=== PATIENT | male | born 1955 | race Caucasian/White ===

== ENCOUNTER → 2018-03-17 09:23 | Outpatient (REF) | payer BC, SELFPAY ==
[2018-03-17 18:36] LABS: Bilirubin Small (Negative); Blood Negative (Negative); Clarity Cloudy; Glucose Negative (Negative); Ketones Trace mg/dL (Negative); Leukocyte Esterase Negative (Negative); Nitrite Negative (Negative); Specific Gravity >= 1.030 (1.005-1.025); Urobilinogen 0.2 EU/dL (Up TO 0.2); pH 5.5 (5-8)
[2018-03-17 19:01] LABS: Bacteria Few HPF (Negative); Epithelial Cells Rare HPF (Negative); RBC Negative (0-2); WBC 0-2 HPF (0-5)
[2018-03-17 19:02] LABS: Casts Negative LPF (Negative); Crystals Many Calcium Oxalate HPF (Negative); Mucus Moderate (Negative)
[2018-03-17 19:03] LABS: C & S Indicated? No
== END ==
LOC: NCHCN 09:23
PROVIDERS: PCP Physician Assistant; Visit Provider Physician Assistant Medical
DX: R31.21 Asymptomatic microscopic hematuria (principal)
CPT/HCPCS: 81003; 81015

== ENCOUNTER 2018-06-16 11:58 | Outpatient (REF) | payer BC, SELFPAY ==
[2018-06-16 19:15] LABS: ALT 29 U/L (12-78); Anion Gap 10.3 mmol/L (3-11); BUN 17 mg/dL (7-18); CO2 26.7 mmol/L (21.0-32.0); CREATININE 0.97 mg/dL (0.70-1.30); Chloride 101 mmol/L (98-107); Glucose 92 mg/dL (70-100); LDL CHOLESTEROL 93 mg/dL (<100); Potassium 4.4 mmol/L (3.5-5.1); Sodium 138 mmol/L (136-145)
== END 2018-06-16 12:18 ==
LOC: NCHCN 11:58
PROVIDERS: PCP Physician Assistant; Visit Provider Internal Medicine
DX: I10 Essential (primary) hypertension (principal); F17.210 Nicotine dependence, cigarettes, uncomplicated; M48.061 Spinal stenosis, lumbar region without neurogenic claudication
CPT/HCPCS: 80048; 83721; 84460

== ENCOUNTER 2019-07-23 10:26 | Outpatient (REF) | payer BC, SELFPAY ==
[2019-07-23 19:27] LABS: ALT 29 U/L (16-63); AST 28 U/L (15-37); Albumin 4.2 g/dL (3.4-5.0); Alkaline Phosphatase 64 U/L (46-116); Anion Gap 8.6 mmol/L (3-11); BUN 21 mg/dL (7-18); Bilirubin, Total 0.6 mg/dL (0.2-1.0); CO2 27.4 mmol/L (21.0-32.0); CREATININE 0.85 mg/dL (0.70-1.30); Calculated LDL 89 mg/dL; Chloride 106 mmol/L (98-107); Cholesterol 175 mg/dL (<200); Glucose 88 mg/dL (74-106); HDL Cholesterol 72 mg/dL (40-60); Potassium 4.5 mmol/L (3.5-5.1); Sodium 142 mmol/L (136-145); Total Protein 7.1 g/dL (6.4-8.2); Triglyceride 71 mg/dL (<150)
== END 2019-07-23 10:46 ==
LOC: NCHCN 10:26
PROVIDERS: PCP Physician Assistant; Visit Provider Nurse Practitioner Family
DX: I10 Essential (primary) hypertension (principal); Z13.220 Encounter for screening for lipoid disorders
CPT/HCPCS: 80053; 80061

== ENCOUNTER 2020-11-08 11:22 | Outpatient (REF) | payer BC, SELFPAY ==
[2020-11-08 15:08] LABS: Abs Immature Grans 0.03 10^3/uL (0.0-0.06); Absolute Basophil Count 0.05 10^3/uL (0.0-0.2); Absolute Eosinophil Count 0.22 10^3/uL (0.0-0.7); Absolute Lymphocyte Count 1.34 10^3/uL (1.2-3.4); Absolute Monocyte Count 0.55 10^3/uL (0.1-0.8); Basophils % 0.6; Eosinophils % 2.8; HCT 38.3 % (40.0-50.0); HGB 13.2 g/dL (13.5-17.5); Immature Grans % 0.4; Lymphocytes % 17.2; MCH 30.6 pg (27.0-33.0); MCHC 34.5 % (32.0-36.0); MCV 88.9 fL (80-95); MPV 9.6 fL (8.0-11.0); Monocytes % 7.1; Neutrophils % 71.9; Nucleated RBC 0 %; Platelet Count 488 10^3/uL (130-400); RBC 4.31 10^6/uL (4.36-5.78); RDW 12.9 % (11.8-14.1); RDW-SD 41.6 fL; WBC 7.79 10^3/uL (4.4-10.8)
== END 2020-11-08 11:23 | disposition home or self-care (01) ==
LOC: NCHCN 11:22
PROVIDERS: PCP Physician Assistant; Visit Provider Nurse Practitioner Family
DX: D72.829 Elevated white blood cell count, unspecified (principal); M48.061 Spinal stenosis, lumbar region without neurogenic claudication
CPT/HCPCS: 85025; 86140

== ENCOUNTER 2021-01-03 09:56 | Outpatient (CLI) | payer BC, SELFPAY ==
--- NOTE | 2021-01-03 10:02 | PDOC.PAIN ---
Pain Clinic Procedure Note Procedure Note Procedure Note: Lumbar/Sacral Medial Branch Blocks JEVON VARGAS has been referred to the [facility] for lumbar/sacral medial branch blocks. Pre-operative diagnosis: lumbar spondylosis Post-operative diagnosis: same as above COMMENTS: patient has multi-level facet arthropathy as demonstrated on MRI L spine. Patient has both axial back pain and bilateral, alternating leg pain, at present time, axial back pain is more sympatomatic than his leg symptoms. He was seen and evaluated by Ms Ivette Coates APRN in pain clinic and referred for diagnostic bilateral lumbar medial branch nerve block. patient works as a high school social science teacher and his average back pain is 6 out of 10 and interfering with his physical activities. 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 Patient was interviewed and the medical record reviewed. There were no medical, pharmacologic, radiographic or other structural contraindications to attempting fluoroscopically guided local anesthetic lumbar/sacral medial branch blocks. Risks and expected side effects as well as potential benefit of the procedure were reviewed and voiced concerns addressed. The printed consent form was signed and witnessed. Standard time-out procedure was performed. Patient was placed in the prone position on the fluoroscopy table and automated blood pressure cuff and pulse oximeter applied. The skin entry points for approaching the anatomic target points of the segmental medial branches of bilateral L3, L4, L5-DR were identified with anfluoroscopy and marked. Following thorough Chlorhexadine preparation of the skin and draping and 1% lidocaine infiltration of the skin entry points and subcutaneous tissues, a 22 gauge spinal needle was placed under fluoroscopic guidance down on to the target point for each respective segmental medial branch.Position was confirmed in A/P, oblique and lateral views with 0.25ml of omnipaque 240. Coult be this method 0.5ml 0.5% Bupivacaine was injected. Vital signs were stable throughout the procedure and were as recorded in the docflowsheet by the nursing staff. Follow up plans and appointments were discussed and was instructed to keep careful note of how the usual pain was modified by these injections. Specifically was asked to keep a pain diary for the next 24 hours using a numeric pain scale of 0-10 and report these results at the follow-up visit. Post procedure instruction was given as documented in the nursing documentation and having met discharge criteria. Patient was discharged from the [facility]. Based on the medial branches blocked today, if the patient has adequate relief and we are able to proceed to radiofrequency ablation, the treatment should result in the denervation of the bilateral L4/5 and L5/S1 facets. We would expect to denervate a total of 4 facets during the radiofrequency ablation. COMMENTS: pre-procedure VAS score 6/10 and post-procedure VAS score 3/10. Tatiana Santana MD Pain Management CC: Kvng Lara
[2021-01-03 10:05] VITALS: BP 121/74; PULSE 55; RESP 14; TEMP 36.8; O2SAT 99
--- NOTE | 2021-01-03 10:41 | DI.RAD_ITS ---
Exam(s) XR PAIN CLINIC LUMBAR SP 2V EXAM: XR PAIN CLINIC LUMBAR SP 2V CLINICAL HISTORY: Dx: Lumbar Spondylosis TECHNIQUE: 2D and realtime digital imaging was performed. COMPARISON: No exams were available for comparison FINDINGS: C-arm fluoroscopy was utilized by Dr. Santana during bilateral lumbar medial branch block. Hard copy show s needle placement bilaterally at what appear to be the L3-4, L4-5, and L5-S1 levels. IMPRESSION: RADIATION DOSE DELIVERED: mariama Gamino=8.7 mGy
[2021-01-03] MEDS: Bupivacaine 0.5% Pres-Free 10 ML VIAL IJ (10:45)
[2021-01-03] MEDS: Omnipaque 240 MG/ML 50 ML BTL IJ (10:46)
[2021-01-03 10:57] VITALS: BP 147/84; PULSE 65; RESP 17; O2SAT 97
== END 2021-01-03 09:57 | disposition home or self-care (01) ==
LOC: PC 09:56
PROVIDERS: PCP Physician Assistant; Visit Provider Internal Medicine
DX: M47.816 Spondylosis without myelopathy or radiculopathy, lumbar region (principal)
CPT/HCPCS: 64493; 64494; 72100; Q9967

== ENCOUNTER 2021-03-02 10:51 | Outpatient (CLI) | payer BC, MEDICARE, SELFPAY ==
--- NOTE | 2021-03-02 06:00 | DI.RAD_ITS ---
Exam(s) XR PAIN CLINIC LUMBAR SP 2V EXAM: XR PAIN CLINIC LUMBAR SP 2V CLINICAL HISTORY: Dx: Lumbar Spondylosis TECHNIQUE: 2D and realtime digital imaging was performed. Radiologist not present. CONTRAST MATERIAL: None. COMPARISON: No exams were available for comparison FINDINGS: Fluoroscopy was provided for pain management therapy. Please refer to procedure report or details. Cumulative dose: Not given. IMPRESSION: RADIATION DOSE DELIVERED:
[2021-03-02 11:04] VITALS: BP 145/84; PULSE 63; RESP 16; TEMP 36.4; O2SAT 99
[2021-03-02 11:36] VITALS: BP 134/68; PULSE 64; RESP 12; O2SAT 99
[2021-03-02] MEDS: Lidocaine 2% Pres-Free 5 ML VIAL IJ (11:37)
[2021-03-02] MEDS: Omnipaque 240 MG/ML 50 ML BTL IJ (11:38)
--- NOTE | 2021-03-02 13:48 | PDOC.PAIN ---
Pain Clinic Procedure Note Procedure Note Procedure Note: Lumbar/Sacral Medial Branch Blocks JEVON VARGAS has been referred to the [facility] for lumbar/sacral medial branch blocks. COMMENTS: Previous LMBB with excellent pain relief. Pain VAS pre-procedurally 6/10. DX: Lumbosacral spondylosis without myelopathy Patient was interviewed and the medical record reviewed. There were no medical, pharmacologic, radiographic or other structural contraindications to attempting fluoroscopically guided local anesthetic lumbar/sacral medial branch blocks. Risks and expected side effects as well as potential benefit of the procedure were reviewed and voiced concerns addressed. The printed consent form was signed and witnessed. Standard time-out procedure was performed. Patient was placed in the prone position on the fluoroscopy table and automated blood pressure cuff and pulse oximeter applied. The skin entry points for approaching the anatomic target points of the segmental medial branches of bilateral L3-L5DR were identified with anfluoroscopy and marked. Following thorough Chlorhexadine preparation of the skin and draping and 1% lidocaine infiltration of the skin entry points and subcutaneous tissues, a 25 gauge spinal needle was placed under fluoroscopic guidance down on to the target point for each respective segmental medial branch.Position was confirmed in A/P, oblique and lateral views with 0.25ml of omnipaque 240. Coult be this method .5ml 0.5% Bupivacaine was injected or 1% Lidocaine. Vital signs were stable throughout the procedure and were as recorded in the docflowsheet by the nursing staff. Follow up plans and appointments were discussed and was instructed to keep careful note of how the usual pain was modified by these injections. Specifically was asked to keep a pain diary for the next 24 hours using a numeric pain scale of 0-10 and report these results at the follow-up visit. Post procedure instruction was given as documented in the nursing documentation and having met discharge criteria. Patient was discharged from the [facility]. Based on the medial branches blocked today, if the patient has adequate relief and we are able to proceed to radiofrequency ablation, the treatment should result in the denervation of the bilateral L4-L5 and L5-S1 FACET JOINTS. We would expect to denervate a total of 4 facets during the radiofrequency ablation. COMMENTS: Post-procedure pain VAS was 0/10. Anam Back DO, MPH Pain Management CC: Kvng Lara
== END 2021-03-02 10:52 | disposition home or self-care (01) ==
PROVIDERS: PCP Physician Assistant; Visit Provider Preventive Medicine Occupational Medicine
DX: M47.816 Spondylosis without myelopathy or radiculopathy, lumbar region (principal)
CPT/HCPCS: 64493; 64494; 72100; Q9967

== ENCOUNTER 2021-03-21 10:13 | Outpatient (CLI) | payer BC, MEDICARE, SELFPAY ==
--- NOTE | 2021-03-21 06:00 | DI.RAD_ITS ---
Exam(s) XR PAIN CLINIC LUMBAR SP 2V EXAM: XR PAIN CLINIC LUMBAR SP 2V CLINICAL HISTORY: Dx: Lumbar Radiculopathy TECHNIQUE: 2D and realtime digital imaging was performed. Radiologist not present. CONTRAST MATERIAL: None. COMPARISON: No exams were available for comparison FINDINGS: Fluoroscopy was provided for pain management therapy. Please refer to procedure report or details. Total fluoroscopy time 27 Cumulative dose: Ka,r=5.91 mGy IMPRESSION: RADIATION DOSE DELIVERED:
[2021-03-21 10:21] VITALS: BP 127/78; PULSE 56; RESP 18; TEMP 36.5; O2SAT 100
--- NOTE | 2021-03-21 10:43 | PDOC.PAIN ---
Pain Clinic Procedure Note Procedure Note Procedure Note: Lumbar Epidural Steroid Injection Procedure Note Pre-operative diagnosis: lumbar radiculopathy Post-operative diagnosis: same as above COMMENTS: patient has L4-5 spinal stenosis seen on MRI L spine. He has both axial back pain and radiating bilateral leg pain, involving lateral thigh and anterior rico, left more than right leg. Unfortunatley, diagnostic LMBB provided 30% pain relief for his chronic axial back pain. He returns for LESI for symptomatic relief of his back and leg symptoms. patient has previous history of microdiskectomy by Dr Narayan in , he had previous responded well to LESI. JEVON VARGAS has been referred to the [facility] for lumbar epidural steroid injection. The patient was greeted by the nurse who verified patients name and . Patient was then taken to the fluoroscopy suite. The patient was interviewed and the medial record reviewed. There were no medical, pharmacologic, radiographic, or other structural contraindications to attempting fluoroscopically guided lumbar epidural steroid injection. Risks and expected side effects as well as potential benefits of the procedure were reviewed and voiced concerns expressed. The patient consent form was signed and witnessed. Standard patient time-out procedure was performed. The patient was placed in the prone position on the fluoroscopy table and automated blood pressure cuff and pulse oximeter applied. The skin entry point for entering/approaching the epidural space by a L4-5 and marked. Following thorough chlorhexadine preparation of the skin and draping and 1% lidocaine infiltration of the skin entry point and subcutaneous tissues, a 18 gauge Touhy needle was placed under fluoroscopic guidance and with loss of resistance technique into the epidural space. Needle tip placement and depth were aided and confirmed by fluoroscopy. There was no paresthesia or return of blood or CSF through the needle. 1 cc's of Omnipaque 240 was injected with clear epidural spread confirmed with fluoroscopy. 80mg depomedrol was injected. This is followed by 1cc of preservative free 1% lidocine and 0.5cc of preservative free normal saline. There was not any unusual discomfort expressed by JEVON VARGAS. Patient's vital signs were stable throughout the procedure and were as recorded in nursing records. Follow up plans and appointments were discussed with patient. Post procedure instruction was given as documented in nursing records and having met discharge criteria and was discharged from the [facility]. COMMENTS: If this procedure is helpful, it can be completed up to 3 times per 12 months. Pre-procedure VAS score 5/10, post-procedure VAS score reported 1/10. Tatiana Santana MD Pain Management
[2021-03-21] MEDS: Omnipaque 240 MG/ML 50 ML BTL IJ (11:06)
[2021-03-21] MEDS: methylPREDNISolone ACETATE 80 MG/ML VIAL IJ (11:07)
[2021-03-21 11:10] VITALS: BP 123/73; PULSE 58; RESP 13; O2SAT 99
== END 2021-03-21 10:14 | disposition home or self-care (01) ==
LOC: PC 10:13
PROVIDERS: PCP Physician Assistant; Visit Provider Internal Medicine
DX: M54.16 Radiculopathy, lumbar region (principal)
CPT/HCPCS: 62323; 72100; J1040; Q9967

== ENCOUNTER 2021-05-10 12:16 | Outpatient (REF) | payer BC, SELFPAY ==
[2021-05-11 06:53] LABS: ALT 31 U/L (16-63); AST 26 U/L (15-37); Albumin 4.3 g/dL (3.4-5.0); Alkaline Phosphatase 70 U/L (46-116); Anion Gap 6.5 mmol/L (3-11); BUN 13 mg/dL (7-18); Bilirubin, Total 0.5 mg/dL (0.2-1.0); CO2 27.5 mmol/L (21.0-32.0); Chloride 107 mmol/L (98-107); Glucose 108 mg/dL (74-106); Potassium 4.5 mmol/L (3.5-5.1); Sodium 141 mmol/L (136-145); Total Protein 7.2 g/dL (6.4-8.2)
== END 2021-05-10 12:17 | disposition home or self-care (01) ==
LOC: NCHCN 12:16
PROVIDERS: PCP Physician Assistant; Visit Provider Nurse Practitioner Family
DX: I10 Essential (primary) hypertension (principal)
CPT/HCPCS: 80053

== ENCOUNTER 2021-07-06 10:33 | Outpatient (CLI) | payer BC, SELFPAY ==
--- NOTE | 2021-07-06 06:00 | DI.RAD_ITS ---
Exam(s) XR PAIN CLINIC LUMBAR SP 2V EXAM: XR PAIN CLINIC LUMBAR SP 2V CLINICAL HISTORY: DX: lumbar radiculopathy TECHNIQUE: 2D and realtime digital imaging was performed. Radiologist not present. CONTRAST MATERIAL: None. COMPARISON: No exams were available for comparison FINDINGS: Fluoroscopy was provided for pain management therapy. Please refer to procedure report or details. Cumulative dose: Ka,r=4.39 mGy IMPRESSION: RADIATION DOSE DELIVERED:
[2021-07-06 11:17] VITALS: BP 127/68; PULSE 60; RESP 16; TEMP 36.6; O2SAT 99
[2021-07-06] MEDS: methylPREDNISolone ACETATE 80 MG/ML VIAL IJ (11:59)
[2021-07-06] MEDS: Omnipaque 240 MG/ML 50 ML BTL IJ (12:00)
[2021-07-06 12:01] VITALS: BP 130/80; PULSE 63; RESP 16; O2SAT 99
--- NOTE | 2021-07-06 14:55 | PDOC.PAIN ---
Pain Clinic Procedure Note Procedure Note Procedure Note: Lumbar Epidural Steroid Injection Procedure Note COMMENTS: Pre-procedure pain VAS was 5/10. DX: Lumbosacral spondylosis without myelopathy Dean Vallejo has been referred to the [facility] for lumbar epidural steroid injection. The patient was greeted by the nurse who verified patients name and . Patient was then taken to the fluoroscopy suite. The patient was interviewed and the medial record reviewed. There were no medical, pharmacologic, radiographic, or other structural contraindications to attempting fluoroscopically guided lumbar epidural steroid injection. Risks and expected side effects as well as potential benefits of the procedure were reviewed and voiced concerns expressed. The patient consent form was signed and witnessed. Standard patient time-out procedure was performed. The patient was placed in the prone position on the fluoroscopy table and automated blood pressure cuff and pulse oximeter applied. The skin entry point for entering/approaching the epidural space at L4-L5 and marked. Following thorough chlorhexadine preparation of the skin and draping and 1% lidocaine infiltration of the skin entry point and subcutaneous tissues, a 18 gauge Touhy needle was placed under fluoroscopic guidance and with loss of resistance technique into the epidural space. Needle tip placement and depth were aided and confirmed by fluoroscopy. There was no paresthesia or return of blood or CSF through the needle. 1 cc's of Omnipaque 240 was injected with clear epidural spread confirmed with fluoroscopy. 80mg depomedrol was injected. There was not any unusual discomfort expressed by Dean Vallejo. Patient's vital signs were stable throughout the procedure and were as recorded in nursing records. Follow up plans and appointments were discussed with patient. Post procedure instruction was given as documented in nursing records and having met discharge criteria and was discharged from the Pain Management Center. COMMENTS: If this procedure is helpful, it can be completed up to 3 times per 12 months. Anam Back DO, MPH [facility] - Pain Management
== END 2021-07-06 10:34 | disposition home or self-care (01) ==
LOC: PC 10:34
PROVIDERS: PCP Physician Assistant; Visit Provider Preventive Medicine Occupational Medicine
DX: M47.817 Spondylosis without myelopathy or radiculopathy, lumbosacral region (principal)
CPT/HCPCS: 62323; 72100; J1040; Q9967

== ENCOUNTER 2021-11-23 12:04 | Outpatient (CLI) | payer BC, SELFPAY ==
[2021-11-23 12:24] VITALS: BP 124/73; PULSE 59; RESP 20; TEMP 36.6; O2SAT 98
--- NOTE | 2021-11-23 12:46 | DI.RAD_ITS ---
Exam(s) XR PAIN CLINIC LUMBAR SP 2V EXAM: XR PAIN CLINIC LUMBAR SP 2V CLINICAL HISTORY: lumbar radiculopathy TECHNIQUE: 2D and realtime digital imaging was performed. Radiologist not present. CONTRAST MATERIAL: None. COMPARISON: No exams were available for comparison FINDINGS: Fluoroscopy was provided for pain management therapy. Please refer to procedure report or details. Cumulative dose: Ka,r=3.72 mGy IMPRESSION: RADIATION DOSE DELIVERED:
--- NOTE | 2021-11-23 12:48 | PDOC.PAIN ---
Pain Clinic Procedure Note Procedure Note Procedure Note: Lumbar Epidural Steroid Injection Procedure Note COMMENTS: He has done very well with these in the past. He typically gets 4-12 months of relief with this type procedure. His pain VAS prior to the procedure was 7/10. Dx: Lumbosacral radiculitis Dean Vallejo has been referred to the [facility] Management Center for lumbar epidural steroid injection. The patient was greeted by the nurse who verified patients name and . Patient was then taken to the fluoroscopy suite. The patient was interviewed and the medial record reviewed. There were no medical, pharmacologic, radiographic, or other structural contraindications to attempting fluoroscopically guided lumbar epidural steroid injection. Risks and expected side effects as well as potential benefits of the procedure were reviewed and voiced concerns expressed. The patient consent form was signed and witnessed. Standard patient time-out procedure was performed. The patient was placed in the prone position on the fluoroscopy table and automated blood pressure cuff and pulse oximeter applied. The skin entry point for entering/approaching the epidural space at L4-L5 and marked. Following thorough chlorhexadine preparation of the skin and draping and 1% lidocaine infiltration of the skin entry point and subcutaneous tissues, a 18 gauge Touhy needle was placed under fluoroscopic guidance and with loss of resistance technique into the epidural space. Needle tip placement and depth were aided and confirmed by fluoroscopy. There was no paresthesia or return of blood or CSF through the needle. 1 cc's of Omnipaque 240 was injected with clear epidural spread confirmed with fluoroscopy. 80mg depomedrol was injected. There was not any unusual discomfort expressed by Dean Vallejo. Patient's vital signs were stable throughout the procedure and were as recorded in nursing records. Follow up plans and appointments were discussed with patient. Post procedure instruction was given as documented in nursing records and having met discharge criteria and was discharged from the Pain Management Center. COMMENTS: If this procedure is helpful, it can be completed up to 3 times per 12 months. Post-procedure pain level was 0/10. Anam Back DO, MPH [facility]-Pain Management [facility]-Center for Pain Management
[2021-11-23] MEDS: Omnipaque 240 MG/ML 50 ML BTL IJ (12:52)
[2021-11-23] MEDS: methylPREDNISolone ACETATE 80 MG/ML VIAL IJ (12:52)
[2021-11-23 12:55] VITALS: BP 129/74; PULSE 57; RESP 15; O2SAT 98
== END 2021-11-23 12:05 | disposition home or self-care (01) ==
LOC: PC 12:05
PROVIDERS: PCP Physician Assistant; Visit Provider Preventive Medicine Occupational Medicine
DX: M54.17 Radiculopathy, lumbosacral region (principal)
CPT/HCPCS: 62323; 72100; J1040; Q9967

== ENCOUNTER 2022-05-07 21:11 | Outpatient (REF) | payer MEDICARE, SELFPAY ==
[2022-05-07 19:58] LABS: BUN 18 mg/dL (7-18); CREATININE 0.9 mg/dL (0.70-1.30); Calcium 9.4 mg/dL (8.5-10.1); Chloride 102 mmol/L (98-107); Estimated GFR 94.19 (mL/min/1.73m2); Glucose 99 mg/dL (74-106); Potassium 4.6 mmol/L (3.5-5.1); Sodium 139 mmol/L (136-145)
== END 2022-05-07 21:12 | disposition home or self-care (01) ==
LOC: NCHCN 21:11
PROVIDERS: PCP Physician Assistant; Visit Provider Nurse Practitioner Family
DX: I10 Essential (primary) hypertension (principal)
CPT/HCPCS: 80048

== ENCOUNTER 2023-05-06 16:48 | Outpatient (REF) | payer MEDICARE, SELFPAY ==
[2023-05-06 18:56] LABS: Anion Gap 9.7 mmol/L (3-11); BUN 17 mg/dL (7-18); CO2 25.3 mmol/L (21.0-32.0); Calcium 9.3 mg/dL (8.5-10.1); Chloride 102 mmol/L (98-107); Estimated GFR 82.49 (mL/min/1.73m2); Glucose 102 mg/dL (74-106); Potassium 4.5 mmol/L (3.5-5.1); Sodium 137 mmol/L (136-145)
== END 2023-05-06 16:49 | disposition home or self-care (01) ==
LOC: NCHCN 16:48
PROVIDERS: PCP Physician Assistant; Visit Provider Nurse Practitioner Family
DX: I10 Essential (primary) hypertension (principal)
CPT/HCPCS: 80048

== ENCOUNTER 2024-05-06 15:19 | Outpatient (REF) | payer MEDICARE, SELFPAY ==
--- OUTSIDE RECORDS SUMMARY | 2024-05-06 15:21 | XMS_ITS | Encounter Summary ---
Author Organization [facility] [place] [address] Care Team Providers Care Change Control Analyst Name Role Phone Bryce Blankenship MD Primary Care Provider [phone] Reason for Referral * Physical Therapy (Routine) - Specialty Diagnoses / Procedures Referred By Contac t Referred To Contact Physical Therapy Diagnoses Chronic midline low back pain without sciatica Pravin Boo MD [facility] [place] [address] Referral ID Status Reason Start Date Expiration Date V isits Requested Visits Authorized [id number] Evaluate and Treat Non PCP 11/01/2020 04/30/2021 12 12 Reason for Visit * Reason Comments Establish Care severe lunbar stenos is Encounter Details Date Type Department Care Team (Late st Contact Info) Description 11/01/2020 8:40 AM EDT Office Visit [place] [address] Pravin Boo MD [facility] [place] [address] Chronic midline low back pain without sciatica Social History Tobacco Use Types Packs/Day Years Used Date Smoking Tobacco: Every Day Cigarettes Smokeless Tobacco: Never Alcohol Use Standard Drinks/Week Comments Yes 3 (1 standard drink = 0.6 oz pur e alcohol) daily Sex and Gender Information Value Date Recorded Sex Assigned at Not on file Gender Identity Not on file Sexual Orientation Not on file documented as of this encounter Last Filed Vital Signs Vital Sign Reading Time Taken Comments Blood Pressure 138/83 11/01/2020 8:26 AM EDT Pulse 78 11/01/2020 8:26 AM EDT Temperature 36.9 ??C (98.5 ??F) 11/01/2020 8:26 AM ED T Respiratory Rate - - Oxygen Saturation - - Inhaled Oxygen Concentration - - Weight 72.6 kg (160 lb) 11/01/2020 8:26 AM EDT Height 168.9 cm (5' 6.5) 11/01/2020 8:26 AM EDT Body Mass Index 25.44 11/01/2020 8:26 AM EDT documented in this encounter Progress Notes * Pravin Boo MD - 11/01/2020 8:40 AM EDT Images from the original note were not included. Pravin Boo MD MS FAOA Department of Orthopaedics [facility] November 01, 2020 Mr. Vallejo is a 65-year-old gentleman seen today in the spine center in consultation from Dr. Noriega. He is seen and evaluated for exacerbation of chronic thoracic spine pain and low back pain. Hispast history is notable for a lumbar disc excision L5-S1 left side at this institution in 1989 fromwhich he has had occasional residual left leg symptoms. His low back pain has been present for over30 years on and off all of which has been relatively well managed having not missed a day of work over 10 years up until very recently with this episode of low back pain by his report. His thoracic spine pain is also related to an old work injury. Thus his symptoms today of mid thoracic pain and midline low back pain are all exacerbations of longstanding pre-existing symptoms which in general have been well managed. He was seen in the spine center in 2018 for very similar symptoms. He states that 80% of his pain is in his back 20% in his legs. Left and right a equally bothersome and intermittently bothersome occurring primarily in the anterior thigh very rarely to the ankle without numbnessor tingling except for the plantar aspect of his feet. He does have a sense of weakness in his legsbut he relates this to his back pain not due to leg symptoms or intrinsic leg weakness. Most recently he has had constipation and a sense of urinary retention which he relates to increasing back painand new onset medication including oral steroids and oxycodone. He does not have perineal numbness.Treatment thus far has included oral steroids for about 2 weeks, oxycodone, and a muscle relaxant. He is unable to take anti- inflammatories due to hemorrhoid bleeding. He arrives by wheelchair due to his back pain not leg symptoms. He is accompanied by his . Pasthistory in addition to his spine surgery includes ongoing smoking alcohol intake, body mass index of 25.44 with a height of 5 feet 7 inches and weight of 160 pounds. His review of systems is negativefor GI, , constitutional symptoms other than what is noted above. He is actually quite comfortable in the supine position and night pain is not a predominant problem. He has had no recent weight loss or changes in appetite. 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 This is a pleasant but somewhat uncomfortable and somewhat hyperactive gentleman. He changes positions slowly but normally otherwise. In the short distance his gait is normal. With encouragement he can walk on his toes and heels for several steps without evidence of weakness. On inspection from theback he has a level pelvis and a straight spine all of which is normal in appearance and is completely nontender from his cervical spine to his sacrum with a well- healed lumbosacral incision. Sciaticnotches are nontender. His lower extremity motor exam is completely normal. His sensory function is intact to light touch.His reflexes are 2 at the knees 1 at the ankles. A straight leg raise test is negative. Calf musculature is soft and nontender bilaterally. He is not spastic or myelopathic. Plain x-rays of the lumbar spine obtained today are reviewed demonstrating age- appropriate degenerative changes without instability or pathologic findings to my review. Lumbar MRI is reviewed from 10/31/2020 from [facility] demonstrating multilevel degenerative changes particularly at the thoracolumbar junction of the lumbosacral junction with multilevel endplate irregularities. He has moderate stenosis at the L2-L3 level and at the L4-L5 level. He alsohas varying degrees of foraminal stenosis all of which has been outlined in the formal radiology report. Impression: This gentleman presents for exacerbation of longstanding and chronic midthoracic pain and lumbosacral pain. None of his presenting ,symptoms are new. These are all exacerbations of longstanding spinal issues confirmed on repeated questioning with both the patient and his . He has minimal symptoms in his legs and his primary issues appears to be predominantly of mechanical pain asso ciated with his low back. The MRI is very reassuring for the absence of pathologic findings such ascancer given his smoking history, infection, or fracture and is notable primarily for degenerative changes and moderate stenosis which I believe to be relatively asymptomatic given the minimal involvement of his legs. Recommendation: I reviewed all these findings including all the imaging studies with the patient and his . We discussed various options all of which are very limited given the chronicity of his symptoms and the anatomic extent of his pain. I did note the difficulty in determining the precise pain generator of his chronic pain. He is not a candidate for surgery nor is he a candidate for injections given the global nature of his symptoms. After reviewing options, I have advised [id number] Tylenol not to exceed 3 g, and I have provided referral for physical therapy close to home. If hischronic pain is not improved over the next few weeks would recommend referral to the pain clinic here with the spine center. Voice recognition was used for this dictation and I apologize for any mis-wording. [facility] Response Trends Patient-reported scores: myD-H Spine Questionnaire responses 02/28/2018 11/01/2020 Oswestry Disability Index (Range: 0-100) 32 (Moderate disability) 68 (Crippled) PROMIS-10 Physical Health Score 44.9 37.4 PROMIS-10 Mental Health Score 50.8 53.3 Pravin Boo MD MS FAOA Professor of Orthopaedic Surgery Formerly [facility], [facility] and [facility] ([facility]) Department of Orthopaedic Surgery [place] [phone] [email or web address] documented in this encounter Plan of Treatment Scheduled Referrals Name Type Priority Associated Diagnoses Orde r Schedule Referral to Physical Therapy Outpatient Referral Routine Chronic midline low back pain without sciatica Ordered: 11/01/2020 documented as of this encounter Visit Diagnoses Diagnosis Chronic midline low back pain without sciatica documented in this encounter Care Teams Change Control Analyst Relationship Specialty Start Date End Date Bryce Blankenship MD [address] [address] PCP - General 11/24/10 documented as of this encounter
--- OUTSIDE RECORDS SUMMARY | 2024-05-06 15:21 | XMS_ITS | Encounter Summary ---
[place] [address] Care Team Providers Care Child Development Assistant Name Role Phone Bryce Blankenship MD Primary Care Provider Reason for Referral * Diagnostic Test (Routine) - Closed Specialty Diagnoses / Procedures Referred By Contac t Referred To Contact Radiology Diagnoses Acute midline low back pain with bilateral sciatica Status post lumbar surgery Procedures MRI Lumbar Spine wwo Contrast MRI Lumbar Spine wo Contrast (Generic) Deng Desai PA [facility] [place] [address] [place] [address] Referral ID Status Reason Start Date Expiration Date V isits Requested Visits Authorized [id number] Closed Specialty Service Requested 02/28/2018 04/28/2018 1 1 Reason for Visit * Diagnostic Test (Routine) - Closed Specialty Diagnoses / Procedures Referred By Contac t Referred To Contact Radiology Diagnoses Acute midline low back pain with bilateral sciatica Status post lumbar surgery Procedures MRI Lumbar Spine wwo Contrast MRI Lumbar Spine wo Contrast (Generic) Deng Desai PA [facility] [place] [address] [place] [address] Referral ID Status Reason Start Date Expiration Date V isits Requested Visits Authorized [id number] Closed Specialty Service Requested 02/28/2018 04/28/2018 1 1 Encounter Details Date Type Department Care Team (Latest Contact Info) Description 03/03/2018 10:34 AM EDT - 03/03/2018 11:59 PM EDT Hospital Encounter MRI at [facility] [place] [address] Leandro Watts MD [facility] [place] [address] Acute midline low back pain with bilateral sciatica; Left L5-S1 discectomy, 1989, Dr. Posadas. Discharge Disposition: Home Social History Tobacco Use Types Packs/Day Years Used Date Smoking Tobacco: Smoker, Current Status Unknown Smokeless Tobacco: Never Alcohol Use Standard Drinks/Week Comments Yes 3 (1 standard drink = 0.6 oz pur e alcohol) daily Sex and Gender Information Value Date Recorded Sex Assigned at Not on file Gender Identity Not on file Sexual Orientation Not on file documented as of this encounter Medications at Time of Discharge Medication Sig Dispensed Refills Start Date End Date CARTIA XT 240 mg Capsule, Sust. Release 24 hr Take 1 capsule by mouth daily. 02/01/2018 losartan (COZAAR) 100 mg Tablet 1 tablet daily. 02/01/2018 documented as of this encounter Plan of Treatment Not on file documented as of this encounter Procedures Procedure Name Priority Date/Time Associated Diagnosis Comments MRI LUMBAR SPINE WITH/WO CONTRAST Routine 03/03/2018 11:57 AM EDT Acute midline low back pain with bilateral sciatica Left L5-S1 discectomy, 1989, Dr. Posadas. documented in this encounter Results * MRI Lumbar Spine wwo Contrast (03/03/2018 11:57 AM EDT) Anatomical Region Laterality Modality L-spine Magnetic Resonan ce Impressions 03/03/2018 3:42 PM EDT Filum terminalis lipoma. Degenerative changes in the lower thoracic and lumbar spine described in detail at individual levels the body the report. Central stenosis greatest at L2-3 and L4-5. Foraminal narrowing greatest at the L4-5 and L5-S1 levels. Comment: The following findings are so common in people without low back pain that while we report their presence, they must be interpreted with caution and in context of the clinical situation (Reference- Pushpavik et al, Spine 2001). Findings: (Prevalence in patients without low back pain), disc degeneration (decreased T2 signal, height loss, bulge) (91%), disc T2-signal loss (83%), disc height loss (56%), disc bulge (64%), disc protrusion (32%), annular fissure (38%). Narrative 03/03/2018 3:42 PM EDT EXAMINATION: MRI LUMBAR SPINE WWO CONTRAST CLINICAL HISTORY: Back pain and right worse than left leg pain, prior left L5-S1 decompression in 1989. Assess for radiculopathy, spinal stenosis. TECHNIQUE: MRI lumbar spine without with gadolinium. 15 cc dotarem COMPARISON: Plain film x-ray examination lumbar spine dated 02/28/2018 FINDINGS: There are disc degenerative changes with disc space narrowing, endplate proliferative and reactive changes greatest at the L5-S1, T11-T12, L2-3, and L4-5 levels. Vertebral bodies are normal in height. Extensive endplate reactive changes are seen posteriorly at L2-3 and L4-5. There are no pars defects. Conus demonstrates normal size shape and signal intensity and terminates at a low normal position the mid L2 level. No abdominal aortic aneurysm. Postop changes of a left-sided laminotomy L5-S1. There is chemical shift artifact and focal high signal intensity on T1-weighted sequence projecting within the thecal sac from approximately L3-S2 consistent with a filum terminale lipoma Findings at specific levels: T11-T12: No axial images at this level. There is evidence of a mild annular bulge with superimposed right paracentral disc protrusion. At least mild overall canal stenosis. Facet arthropathy present. Moderate left and mild to moderate right foraminal narrowing. T12-L1: Facet arthropathy. Present. No disc protrusion or central stenosis. No foraminal narrowing. L1-L2: No disc protrusion or central stenosis. Facet arthropathy bilaterally present. Mild caudal foraminal narrowing due to facet arthropathy. L2-L3: Moderate overall central stenosis secondary to endplate proliferative change, broad annular bulge and facet arthropathy. Moderate bilateral foraminal narrowing. L3-L4: Mild overall canal stenosis secondary to annular bulge and facet arthropathy. Mild to moderate bilateral foraminal narrowing. L4-5: Moderate to severe central stenosis present secondary to a broad central disc extrusion and facet arthropathy with endplate proliferative changes. Severe right and moderate to severe left foraminal narrowing present. L5-S1: No disc protrusion or central stenosis. Endplate proliferative changes present. Severe bilateral foraminal narrowing due to disc space narrowing, endplate proliferative change and facet arthropathy.. Procedure Note Haroon Angeles MD - 03/03/2018 EXAMINATION: MRI LUMBAR SPINE WWO CONTRAST CLINICAL HISTORY: Back pain and right worse than left leg pain, prior leftL5-S1 decompression in 1989. Assess for radiculopathy, spinal stenosis. TECHNIQUE: MRI lumbar spine without with gadolinium. 15 cc dotarem COMPARISON: Plain film x-ray examination lumbar spine dated 02/28/2018 FINDINGS: There are disc degenerative changes with disc space narrowing, endplate proliferative and reactive changes greatest at the L5-S1,T11-T12, L2-3, and L4-5 levels. Vertebral bodies are normal in height. Extensiveendplate reactive changes are seen posteriorly at L2-3 and L4-5. There are nopars defects. Conus demonstrates normal size shape and signal intensity and terminates at a low normal position the mid L2 level. No abdominal aortic aneurysm. Postop changes of a left-sided laminotomy L5-S1. There is chemical shift artifact and focal high signal intensity onT1-weighted sequence projecting within the thecal sac from approximately L3-[id number] with a filum terminale lipoma Findings at specific levels: T11-T12: No axial images at this level. Thereis evidence of a mild annular bulge with superimposed right paracentraldisc protrusion. At least mild overall canal stenosis. Facet arthropathypresent. Moderate left and mild to moderate right foraminal narrowing. T12-L1: Facet arthropathy. Present. No disc protrusion or centralstenosis. No foraminal narrowing. L1-L2: No disc protrusion or central stenosis. Facet arthropathybilaterally present. Mild caudal foraminal narrowing due to facet arthropathy. L2-L3: Moderate overall central stenosis secondary to endplateproliferative change, broad annular bulge and facet arthropathy. Moderate bilateralforaminal narrowing. L3-L4: Mild overall canal stenosis secondary to annular bulge and facet arthropathy. Mild to moderate bilateral foraminal narrowing. L4-5: Moderate to severe central stenosis present secondary to a broadcentral disc extrusion and facet arthropathy with endplate proliferative changes.Severe right and moderate to severe left foraminal narrowing present. L5-S1: No disc protrusion or central stenosis. Endplate proliferativechanges present. Severe bilateral foraminal narrowing due to disc spacenarrowing, endplate proliferative change and facet arthropathy.. IMPRESSION Filum terminalis lipoma. Degenerative changes in the lower thoracic and lumbar spine described indetail at individual levels the body the report. Central stenosis greatest at L2-3 and L4-5. Foraminal narrowing greatest at the L4-5 and L5-S1 levels. Comment: The following findings are so common in people without low backpain that while we report their presence, they must be interpreted with cautionand in context of the clinical situation (Reference- Jarvik et al, [id number]). Findings: (Prevalence in patients without low back pain), discdegeneration (decreased T2 signal, height loss, bulge) (91%), disc T2-signal loss(83%), disc height loss (56%), disc bulge (64%), disc protrusion (32%), annularfissure (38%). 3:42 PM Leandro Watts MD [facility] MRI ORDERABLES documented in this encounter Visit Diagnoses Diagnosis Acute midline low back pain with bilateral sciatica Left L5-S1 discectomy, 1989, Dr. Posadas. Other postprocedural status documented in this encounter Administered Medications Inactive Administered Medications - up to 3 most recent administrations Medication Order MAR Action Action Date Dose Rate Site gadoterate meglumine (DOTAREM) 0.5 mmol/mL (376.9 mg/mL) injection 0-20 mL 0-20 mL, Intravenous, ONCE PRN, 1 dose, Starting on Sat03/03/18 at 1127, Until Sat03/03/18 at 1127, Per Protocol, Radiology Contrast, Routine Given 03/03/2018 11:27 AM EDT 15 mLs documented in this encounter Care Teams Child Development Assistant Relationship Specialty Start Date End Date Bryce Blankenship MD [address] [place] [id number] PCP - General 11/24/10 documented as of this encounter
--- OUTSIDE RECORDS SUMMARY | 2024-05-06 15:21 | XMS_ITS | Encounter Summary ---
Author Organization [facility] [place] [address] Care Team Providers Care Smoke Room Operator Name Role Phone Bryce Blankenship MD Primary Care Provider [phone] Reason for Visit * Reason Onset Date Comments Advice Only 10/31/2020 Encounter Details Date Type Department Care Team (Late st Contact Info) Description 10/31/2020 Telephone [facility] [place] [phone] Kelli Hatch, tuber machine cutter Only Social History Tobacco Use Types Packs/Day Years Used Date Smoking Tobacco: Every Day Smokeless Tobacco: Never Alcohol Use Standard Drinks/Week Comments Yes 3 (1 standard drink = 0.6 oz pur e alcohol) daily Sex and Gender Information Value Date Recorded Sex Assigned at Not on file Gender Identity Not on file Sexual Orientation Not on file documented as of this encounter Miscellaneous Notes * Telephone Encounter - Kelli Hatch RN - 10/31/2020 2:38 PM EDT Received call frm Dr Bryce Noriega, [facility] Seeking assistance with Mr Vallejo who presented to their ED for a different problem but while there they noted increased difficulty w ambulation, PE findings that were worrisome that prompted them to get a lumber MRI. Pt was seen here by Deng Desai in 2018 for Chronic pain, SS. 2018 MRI in edh; today's MRI not immediately available at time of report. 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 In September at time of winter break pt exerieinced worsening back pain int his bilat legs. Caller states pt has been seeing an associate provider And has been treated with oral steroids. Pt came into the [facility] Ed for another problem but in taking history and examining him; they decided they should look into Hs spine problem. He reported ~ 3 wks of increased difficulty urinating; He was able to void but had difficulty starting his stream and did not feel like he was emptying; PVR in ED was 400 ml. He reported low back and intrascapular pain; bilat leg pain. Marked weakness right greater than left. Caller states he can raise legs off bed; unable to meet resistance of even 1 finger on right; slightly stronger on left. No sensory deficits in legs though does report altered sensation in his feet, Rectal tone intact on exam; noted no enlarges prostate on rectal exam. Per pt report to outside ED provider his ambulating has declined Significantly over the past 6 wks.He can ambulate only short distances and then is in bed. Outside imaging; faxed MRI report, and oral report shared with Dr Gilbert who indicated an outpt evaluation could be arrange that this was not urgent/emergent and no transfer was indicated. Faxed outside MRI to medical records to be scanned. Connected [facility] provider with marine oil terminal superintendent to arrange an appt this week with Dr Boo.to facilitate surgical eval. Outside MRI Radiology report placed in clinic folder for tomorrow's appt in the event the document is not scanned into chart in time for visit documented in this encounter Plan of Treatment Not on file documented as of this encounter Visit Diagnoses Not on filedocumented in this encounter Care Teams Smoke Room Operator Relationship Specialty Start Date End Date Bryce Blankenship MD [address] [place] [id number] PCP - General 11/24/10 documented as of this encounter
--- OUTSIDE RECORDS SUMMARY | 2024-05-06 15:21 | XMS_ITS | Encounter Summary ---
Author Organization [facility] [place] [address] Care Team Providers Care Strip Roller Name Role Phone Bryce Blankenship MD Primary Care Provider [phone] Reason for Visit * - Closed Specialty Diagnoses / Procedures Referred By Jack t Referred To Contact Procedures Film Library- Storage Only MR Spine Bryce Blankenship MD [address] [place] [address] Referral ID Status Reason Start Date Expiration Date Visits Re quested Visits Authorized [id number] Closed 10/31/2020 10/31/2021 1 1 Encounter Details Date Type Department Care Team (Late st Contact Info) Description 10/31/2020 2:10 PM EDT Ancillary Procedure Radiology Library [place] [id number] Bryce Blankenship MD [address] [place], [place] [address] Social History Tobacco Use Types Packs/Day Years Used Date Smoking Tobacco: Every Day Smokeless Tobacco: Never Alcohol Use Standard Drinks/Week Comments Yes 3 (1 standard drink = 0.6 oz pur e alcohol) daily Sex and Gender Information Value Date Recorded Sex Assigned at Not on file Gender Identity Not on file Sexual Orientation Not on file documented as of this encounter Plan of Treatment Not on file documented as of this encounter Procedures Procedure Name Priority Date/Time Associated Diagnosis Comments FILM LIBRARY STORAGE ONLY MR SPINE Routine 10/31/2020 2:06 PM EDT documented in this encounter Results * Film Library- Storage Only MR Spine (10/31/2020 2:06 PM EDT) Narrative AMPARO - 10/31/2020 2:06 PM EDT This exam is auto-finalizing. It's purpose is for storage only. Bryce Blankenship MD IMG FILM LIBRARY ORD ERABLES Performing Organization Address City/State/[facility] Co de Phone Number [place], [place] documented in this encounter Visit Diagnoses Not on filedocumented in this encounter Care Teams Strip Roller Relationship Specialty Start Date End Date Bryce Blankenship MD [address] [place] [id number] PCP - General 11/24/10 documented as of this encounter
--- OUTSIDE RECORDS SUMMARY | 2024-05-06 15:21 | XMS_ITS | Encounter Summary ---
Author Organization [facility] [place] [address] Care Team Providers Care Alumni Coordinator Name Role Phone Bryce Blankenship MD Primary Care Provider [phone] Encounter Details Date Type Department Care Team (Late st Contact Info) Description 10/31/2020 Orders Only [facility] [place] [address] Pravin Boo MD [facility] [place] [address] Spinal stenosis of lumbar region, unspecified whether neurogenic claudication present; Foraminal stenosis of lumbar region Social History Tobacco Use Types Packs/Day Years Used Date Smoking Tobacco: Every Day Smokeless Tobacco: Never Alcohol Use Standard Drinks/Week Comments Yes 3 (1 standard drink = 0.6 oz pur e alcohol) daily Sex and Gender Information Value Date Recorded Sex Assigned at Not on file Gender Identity Not on file Sexual Orientation Not on file documented as of this encounter Progress Notes * Kelli Hatch RN - 10/31/2020 2:43 PM EDT Xray signed off as authorized by Dr Gilbert/Dr Boo to be performed on arrival to time sensitive surgical evaluation. documented in this encounter Plan of Treatment Not on file documented as of this encounter Results * XR Lumbar Spine 2 Or 3 Views (Generic) (11/01/2020 7:51 AM EDT) Anatomical Region Laterality Modality L-spine N/A Digital Radiogra phy Impressions 11/01/2020 8:58 AM EDT Degenerative disc disease in the lower lumbar spine. Osteoarthritis. Thank you for letting us participate in the care of this patient. ??If you are a health care provider and have any questions regarding this report, please contact the number below. ??For our patients who have questions regarding this report, please first contact your doctor prior to speaking to our radiologists. ? Narrative 11/01/2020 8:58 AM EDT EXAMINATION: XR LUMBAR SPINE 2 OR 3 VIEWS (GENERIC) CLINICAL HISTORY: Upright AP, Lat Flex/extension Xray ( 3 views) to facilitate eval; to include surgery consideration TECHNIQUE: 3 views of the lumbar spine including lateral flexion and extension images COMPARISON: February 28, 2018 FINDINGS: The alignment of the vertebral bodies is normal. No acute osseous abnormality is seen. Disc space narrowing is demonstrated at L4-5 and L5-S1. Small marginal osteophytes are demonstrated on the vertebral bodies. Degenerative disease is demonstrated in the facet joints in the lower lumbar region. There is no significant abnormality of motion between flexion and extension images. Procedure Note Morgan Lunsford MD - 11/01/2020 EXAMINATION: XR LUMBAR SPINE 2 OR 3 VIEWS (GENERIC) CLINICAL HISTORY: Upright AP, Lat Flex/extension Xray ( 3 views) tofacilitate eval; to include surgery consideration TECHNIQUE: 3 views of the lumbar spine including lateral flexion and extensionimages COMPARISON: February 28, 2018 FINDINGS: The alignment of the vertebral bodies is normal. No acute osseousabnormality is seen. Disc space narrowing is demonstrated at L4-5 and L5-S1. Smallmarginal osteophytes are demonstrated on the vertebral bodies. Degenerative diseaseis demonstrated in the facet joints in the lower lumbar region. There is no significant abnormality of motion between flexion and extension images. IMPRESSION Degenerative disc disease in the lower lumbar spine. Osteoarthritis. Thank you for letting us participate in the care of this patient. If youare a health care provider and have any questions regarding this report,please contact the number below. For our patients who have questions regardingthis report, please first contact your doctor prior to speaking to ourradiologists. Pravin Boo MD IMG DX ORDERABLES documented in this encounter Visit Diagnoses Diagnosis Spinal stenosis of lumbar region, unspecified whether neurogenic claudication present Foraminal stenosis of lumbar region Spinal stenosis, lumbar region, without neurogenic claudication Spinal stenosis of lumbar region, unspecified whether neurogenic claudication present Foraminal stenosis of lumbar region Spinal stenosis, lumbar region, without neurogenic claudication documented in this encounter Care Teams Alumni Coordinator Relationship Specialty Start Date End Date Bryce Blankenship MD [address] [place] [id number] PCP - General 11/24/10 documented as of this encounter
--- OUTSIDE RECORDS SUMMARY | 2024-05-06 15:21 | XMS_ITS | Encounter Summary ---
Author Organization [facility] Address [facility] [place] [address] Care Team Providers Care Innersole Maker Name Role Phone Bryce Blankenship MD Primary Care Provider [phone] Encounter Details Date Type Department Care Team (Latest Contact Info) Description 02/28/2018 9:58 AM EDT - 02/28/2018 11:59 PM EDT Hospital Encounter XRay at [address] [place] [address] Leandro Watts MD [facility] [place] [address] Acute midline low back pain with bilateral [...] Procedure Name Priority Date/Time Associated Diagnosis Comments XR LUMBAR SPINE 2 OR 3 VIEWS Routine 02/28/2018 10:12 AM EDT Acute midline low back pain with bilateral sciatica Left L5-S1 discectomy, 1989, Dr. Posadas. documented in this encounter Results * XR Lumbar Spine 2 Or 3 Views (Generic) (02/28/2018 10:12 AM EDT) Anatomical Region Laterality Modality L-spine N/A Digital Radiogra phy Impressions 02/28/2018 12:14 PM EDT Multilevel degenerative disc disease and facet arthropathy. No listhesis or abnormal motion on flexion and extension. Narrative 02/28/2018 12:14 PM EDT EXAMINATION: XR LUMBAR SPINE 2 OR 3 VIEWS (GENERIC) CLINICAL HISTORY: Request AP, lateral flexion-extension views, prior left L5-S1 discectomy in 1989. TECHNIQUE: AP view the lumbar spine with lateral flexion and extension views COMPARISON: None FINDINGS: 5 nonrib-bearing lumbar-type vertebral bodies. In flexion and extension views, the patient appears to be bending mostly at the level of the hips rather than the lumbar spine. There is no listhesis or abnormal motion on flexion and extension. There is disc space narrowing at L2-3 and L4-5 where there is disc space narrowing and marginal osteophyte formation. There are degenerative changes at L5-S1 where there is endplate sclerosis. Facet arthropathy at L4-5 and L5-S1. Procedure Note Merna Villanueva MD - 02/28/2018 EXAMINATION: XR LUMBAR SPINE 2 OR 3 VIEWS (GENERIC) CLINICAL HISTORY: Request AP, lateral flexion-extension views, prior leftL5-S1 discectomy in 1989. TECHNIQUE: AP view the lumbar spine with lateral flexion and extension views COMPARISON: None FINDINGS: 5 nonrib-bearing lumbar-type vertebral bodies. In flexion and extensionviews, the patient appears to be bending mostly at the level of the hips ratherthan the lumbar spine. There is no listhesis or abnormal motion on flexionand extension. There is disc space narrowing at L2-3 and L4-5 where there isdisc space narrowing and marginal osteophyte formation. There aredegenerative changes at L5-S1 where there is endplate sclerosis. Facet arthropathy atL4-5 and L5-S1. IMPRESSION Multilevel degenerative disc disease and facet arthropathy. No listhesisor abnormal motion on flexion and extension. Leandro Watts MD IMG DX ORDERABLES documented in this encounter Visit Diagnoses Diagnosis Acute midline low back pain with bilateral sciatica Left L5-S1 discectomy, 1989, Dr. Posadas. Other postprocedural status documented in this encounter Care Teams Innersole Maker Relationship Specialty Start Date End Date Bryce Blankenship MD [address] [place] [id number] PCP - General 11/24/10 documented as of this encounter
--- OUTSIDE RECORDS SUMMARY | 2024-05-06 15:21 | XMS_ITS | Clinical Summary ---
Author Organization [facility] Address [facility] [place] [address] Care Team Providers Care Card Grader Name Role Phone Bryce Blankenship MD Primary Care Provider [phone] Allergies Active Allergy Reactions Criticality Noted Date Comments Lisinopril 02/28/2018 Face swelling Nifedipine Anaphylaxis High 02/28/2018 Unclassified Drug 02/28/2018 NSAIDS- cause rectal bleeding Medications Medication Sig Dispensed Refills Start Date End Date Status CARTIA XT 240 mg Capsule, Sust. Release 24 hr Take 1 capsule by mouth daily. 02/01/2018 Active losartan (COZAAR) 100 mg Tablet 1 tablet daily. 02/01/2018 Active amLODIPine (Norvasc) 10 mg tablet Take 10 mg by mouth daily. 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 Family History Medical History Relation Comments Heart Disease Father Amblyopia Neg Hx Blindness Neg Hx Cancer Neg Hx Cataracts Neg Hx Diabetes Neg Hx Glaucoma Neg Hx Hypertension Neg Hx Macular Degeneration Neg Hx Retinal Detachment Neg Hx Strabismus Neg Hx Stroke Neg Hx Thyroid Disease Neg Hx Relation Status Comments Brother Father Mother Sister Social History Tobacco Use Types Packs/Day Years Used Date Smoking Tobacco: Every Day Cigarettes Smokeless Tobacco: Never Alcohol Use Standard Drinks/Week Comments Yes 3 (1 standard drink = 0.6 oz pur e alcohol) daily Sex and Gender Information Value Date Recorded Sex Assigned at Not on file Gender Identity Not on file Sexual Orientation Not on file Last Filed Vital Signs Vital Sign Reading [...] Mass Index 25.44 11/01/2020 8:26 AM EDT Plan of Treatment Health Maintenance Due Date Last Done Comments CT Colonography 1955 Colonoscopy 1955 Colorectal Cancer Screening 1955 FIT DNA 1955 FIT 1955 Sigmoidoscopy (10 year) with FIT yearly 1955 Sigmoidoscopy 1955 Pneumoccocal Vaccine: 65+ (1 of 2 - PCV) 1961 Hepatitis C Screening 1973 Lipid Screening 1973 Tetanus/Diphtheria/Pertussis Vaccines (1 - Tdap) 05/08 Zoster vaccine (1 of 2) 2005 Advance Directive 2010 AAA Screen 2020 Covid-19 Vaccine (1 - 2022-24 season) 2024 Influenza (Flu) vaccine (1 o f 1 - Influenza standard series) 04/05/2024 Care Teams Card Grader Relationship Specialty Start Date End Date Bryce Blankenship MD [address] [place] [address] PCP - General 11/24/10
--- OUTSIDE RECORDS SUMMARY | 2024-05-06 15:21 | XMS_ITS | Encounter Summary ---
Author Organization [facility] Address [facility] [place] [address] Care Team Providers Care Clinical Secretary Name Role Phone Bryce Blankenship MD Primary Care Provider [phone] Reason for Visit * Reason Comments Follow-up Back Pain Encounter Details Date Type Department Care Team (Latest Contact Info) Description 03/03/2018 1:00 PM EDT Office [place] [address] [place] [address] Spinal stenosis of lumbar region with radiculopathy Social History Tobacco Use Types Packs/Day Years [...] as of this encounter Progress Notes * Deng Desai PA - 03/03/2018 1:00 PM EDT Dean Vallejo is 62-year-old gentleman I am seen today in follow-up visit with regards to his improving pattern of back pain with bilateral lower extremity pain. Initially a problem for him around summer of last year with recent flareup earlier this year which appears to have improved following a course of oral prednisone, anti-inflammatories, and cyclobenzaprine. I reviewed his MRI of lumbar spine performed earlier today. This is most significant for findings of severe spinal stenosis at the L4-L5 level secondary to broad-based disc bulge, ligamentous hypertrophy, and facet degeneration. At the L5-S1 level there appears to have been left-sided laminotomy/disc excision surgery consistent with his prior left L5-S1 discectomy in 1989. No evidence for recurrent herniated disc. There is some moderate central canal narrowing at L2- L3 with the remaining levelsof the lumbar spine are fairly patent. 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 Assessment/plan: Dean Vallejo is a 62-year-old gentleman seen today for chief complaint of low back pain with bilateral lower extremity pain. This appears to have been on and off problem for him for about a year now. He has had a recent flareup over the past few months which has been improving asof late. I advised him that for options for treatment, we can certainly perform a lumbar epidural steroidal injections for pain relief, as well as perform surgery which in his case would have to be L4-L5 laminectomy, with no fusion. He was with his today in this appointment. As the symptoms have been improving, advised him he may not benefit that much with spine surgery currently, so he should monitor for recurrence of severe symptoms and at that point further treatment would be more appropriate. He is provided the contact information for our spine center. documented in this encounter Plan of Treatment Not on file documented as of this encounter Visit Diagnoses Diagnosis Spinal stenosis of lumbar region with radiculopathy Spinal stenosis, lumbar region, without neurogenic claudication documented in this encounter Care Teams Clinical Secretary Relationship Specialty Start Date End Date Bryce Blankenship MD [address] [place] [id number] PCP - General 11/24/10 documented as of this encounter
--- OUTSIDE RECORDS SUMMARY | 2024-05-06 15:21 | XMS_ITS | Data Portability ---
Author Organization [place] - [facility] Address [address] [place] [address] Care Team Providers Care Marriage And Family Teacher Name Role Phone XIAO GREY Primary Care Provider Assessment Encounter Date Assessment Date Assessment LastModified by Organization Details LastModified Time 11/05/2023 11/05/2023 The total time devoted to today's encounter, including both the htag-qj-ojsv time with the patient and/or family/caregi jeromy and goi-avrr-sx-f belinda time I personally spent is 30 minutes. [email or web address] Not available 11/05/2023 11:05:49 Plan of Treatment Reminders Order Date Submit Date Provider Last Modified By Organization Details Last Modified Time Details Appointments Follow Up 2023 08:00A M Not available Not available Not available Follow Up 30 2024 09:10A M Not available Not available Not available Lab CMP, serum or plasma [address] [facility] (Registration ), [address] [place] [address] [place], [address], 05/06/2024 09:25:24 lipid panel, serum [address] [facility] (Registration ), [address] [place] [address] [place], [address], 05/06/2024 09:25:24 Referral None recorded. Procedures None recorded. Surgeries None recorded. Imaging LDCT, chest, for lung cancer screening [address] [facility], [address], [place], [address], 01/06/2024 14:50:42 Medication Orders diltiazem CD 240 mg capsule,e xtended release 24 hr 2023 024 [facility] [address], [address] [facility], [place], [address], 11/05/2023 09:32:53 amlodipin e 10 mg tablet 2023 024 [facility] [address], [address] [facility], [place], [address], 11/05/2023 09:32:51 losartan 100 mg tablet 2023 024 [facility] [address], [address] [facility], [place], [address], 11/05/2023 09:32:51 Patient TargetsNo targets recorded. Patient Instructions Encounter Date Encounter Id Patient Instructions Last Modified By Organization Details Last Modified Time 11/05/2023 [id number] Congratulations on having your colonoscopy and no cancer per pathology I ordered LDCT lungs, you should be hearing from [facility] to have that schedule Good luck with smoking cessation, continue current medications Good luck with the new grandchild!!!! Not available 11/05/2023 09:36:12 05/06/2024 [id number] I will send you a letter with the results of your lab work Continue current medication Good luck with smoking and alcohol cessation/decrease Not available 05/06/2024 08:30:47 Reason for Referral None Reported. Results Created Date Observation Date Name Description Value Unit Range Abnormal Flag Note LastModifiedBy Organization Detail LastModifiedTime 12/22/19 24 12/20/2023 CT chest low dose Ca scree iraida LOW-DO SE SCREEN ING CT OF THE CHEST WITHOU T CONTRA ST RIS EXAM DATE/T TOBI: 2023 10:04 INDICA TION: Smokin g histor y Multip le scans obtain ed from apices to bases of lungs withou t intrav enous contra st utiliz ing low dose techni que. Multip lanar reform atted images obtain ed from the axial data set. Compar yasmin made with previo us study of 2021. Tiny noncal cified subple ural left lung nodule s are again noted. No new noncal cified nodule s are seen. Multip le calcif ied parenc hymal granul omas are again seen. No eviden t hilar, medias tinal, axilla ry or retroc rural adenop athy identi fied on unenha nced scan. Mild LAD calcif icatio n and slight circum flex calcif icatio n. 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 Visual ized portio ns of liver, spleen , pancre as, adrena l glands and left kidney show no gross abnorm ality on low dose unenha nced scan. IMPRES KAUSHAL: Two stable tiny subple ural nodule s in left lung. Multip le bilate ral calcif ied granul omas. Aberra nt right subcla vian artery . Lung-R ADS Catego ry 2: Contin ue annual screen ing THIS IS AN ELECTR ONICAL LY VERIFI ED REPORT 024 11:16 AM: ANURAG THOMAS M.D. [address], [place], [address], 12/23/2023 07:59:57 04/20/20 24 10/31/2020 MRI, lumba r spine , w/wo contr ast No observ ation record ed. Not Available 04/20 20:09:24 04/20/20 24 10/31/2020 XR, thora cic spine No observ ation record ed. Not Available 04/20 20:09:24 04/20/20 24 08/06/2018 CT, chest No observ ation record ed. Not Available 04/20 20:10:02 04/20/20 24 06/11/2020 LDCT, chest , for lung cance r scree iraida No observ ation record ed. Not Available 04/20 20:10:06 04/20/20 24 08/09/2021 LDCT, chest , for lung cance r scree iraida No observ ation record ed. Not Available 04/20 20:10:07 Result Notes None recorded. Problems Name Problem SNOMED Code Status Onset Date Resolution Date Notes Provider Name and Address Organization Details Recorded Time Tyrese muroen kaushal 84143342 Active 2011 [facility] 4 14:56:34 Tobacco dependen ce caused by cigarett es 01972528721 388619 Active 2011 Smoker -- 35 py [facility] 4 15:01:15 Right bundle branch block 61570818 Active 2011 [facility] 4 14:58:21 Benign neoplasm of colon 43593993 Active 2014 Tubular adenoma of colon -- repeat C-scope 09/2023 (done 09/2020) [facility] 4 14:56:13 Pain of right shoulder joint 73777424200 362791 Completed 201611/07/2016 Problem Code: M25.511; Problem Code Type: ICD-10; Not Available [facility] 3 05:36:37 Inguinal hernia 053246392 Active 2016 right, small [facility] 4 14:57:12 Lumbago with sciatica 158876440 Active 2017 [facility] 4 14:57:24 Asymptom atic microsco pic hematuri a 53647426524 101077 Completed 201711/05/2023 Removal Reason: negative on recheck per patient BALDO CANALES [address], [place], [address] , [facility] 4 09:34:40 General examinat ion of patient Completed 201703/17/2018 [facility] 4 14:56:54 Spinal stenosis of lumbar region 05236903 Active 2017 severe via MRI [facility] ED 10/31/20, referred neurosur g Kari Juarez [facility] 4 14:59:46 Lung field abnormal 361682317 Active 2018 Multiple nodules of lung -- Benign 4mm subpleur al 08/2018, granulom as, [facility] 4 14:58:10 Adjustme nt disorder with mixed anxiety and depresse d mood 547015003 Active 2018 [facility] 4 14:53:58 Skin changes due to chronic exposure to non-ioni zing radiatio n 639198748 Active 2019 Acitinic skin damage [facility] 4 14:59:05 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 98373292 Active 2020 DJD, lumbosac ral spine, severe [facility] 4 15:00:53 C-reacti ve protein above referenc e range 42606128927 9104 Active 2020 [facility] 4 14:56:25 Spondylo sis 2277961 Active 2020 Degenera tive joint disease, spine [facility] 4 15:00:26 Alcohol abuse 93496363 Active 2020 [facility] 4 14:54:12 Cellulit is of left lower limb 15328753419 596443 Completed 202005/07/2022 Problem Code: L03.116; Problem Code Type: ICD-10; Not Available [facility] 3 05:36:45 Backache 116772857 Completed 200905/01/2023 Not Available [facility] 3 05:36:46 Alcohol abuse 10853134 Completed 201105/10/2021 Problem Code: F10.10; Problem Code Type: ICD-10; Kari mckinnon [facility] 4 14:54:12 Leukocyt osis 888226157 Completed 202005/07/2022 Problem Code: D72.829; Problem Code Type: ICD-10; Not Available [facility] 3 05:36:49 Acute pharyngi tis 601794391 Completed 201612/06/2017 Problem Code: J02.9; Problem Code Type: ICD-10; Not Available [facility] 3 05:36:49 Adult health examinat ion Completed 201412/06/2017 Problem Code: Z00.00; Problem Code Type: ICD-10; Not Available [facility] 3 05:36:50 Hyperlip idemia screenin g Completed 201811/09/2020 Problem Code: Z13.220; Problem Code Type: ICD-10; Not Available [facility] 3 05:36:51 Angioede julien 60278970 Completed 201405/04/2016 Problem Code: T78.3xxA ; Problem Code Type: ICD-10; Not Available [facility] 3 05:36:51 Smoker 86500117 Completed 201105/01/2023 02/04/20 15 - Comments only - Bryce Blankenship MD - contempl ative. Not Available [facility] 3 05:36:52 Low back pain 412511683 Completed 200902/12/2018 Problem Code: M54.5; Problem Code Type: ICD-10; Not Available [facility] 3 05:36:52 Rosacea 472266007 Completed 201505/10/2021 Problem Code: L71.9; Problem Code Type: ICD-10; Not Available [facility] 3 05:36:53 Hyperten sive disorder 14227500 Completed 201105/01/2023 Not Available [facility] 3 05:36:53 Insect bite Completed 202005/07/2022 Not Available [facility] 3 05:36:53 Problem Notes None recorded. Procedures Surgical History Date Name Laterality Status Provider Name and Address Organization Details Recorded Time 4 colonoscopy completed LAKSHMI STAUFFER LPN [facility] 12/05/2023 12:06:15 Imaging Results Imaging Date Name Status LastModified by Organiz ation Details LastModified Time 12/20/2023 CT chest low dose Ca screening completed [place] [address], [place], [address], 12/23/2023 07:59:57 10/31/2020 MRI, lumbar spine, w/wo contrast completed Information not available 04/20/2024 20:09:24 10/31/2020 XR, thoracic spine completed Information not available 04/20/2024 20:09:24 08/06/2018 CT, chest completed Information no t available 04/20/2024 20:10:02 06/11/2020 LDCT, chest, for lung cancer screening completed Information not available 04/20/2024 20:10:06 08/09/2021 LDCT, chest, for lung cancer screening completed Information not available 04/20/2024 20:10:07 Procedure Notes None recorded. Medical Equipment None Reported. Allergies Allergen ID Allergen Name Allergen Category Reaction Reaction Severity Criticality Documentation Date Start Date Code Code System Note Provider Name and Address Organization Details Recorded Time 54929 nifedipin e medicatio n angioedem a Not available [facility] 06/14/20232013 7417 RxNorm Kari [facility], [facility] 4 15:05:16 48131 lisinopri l medicatio n facial swelling Not available [facility] 06/14/20232015 81951 RxNorm Kari [facility], [facility] 4 15:05:00 85032 ibuprofen medicatio n gi bleed moderate Not available 10/28/20232009 5640 RxNorm (NSAI DS) gi bleed ing [facility], [facility] 4 15:01:58 40161 wasp venoms environme nt hives swelling severe Not available high 10/28/20232020 33892 RxNorm sever e hives , itchi ng tongu e, swell ing [facility], [facility] 4 15:04:24 41719 Wellbutri n medicatio n other Not available Not available 10/28/20232019 52994 RxNorm anxie ty, panic [facility] 4 15:05:54 Medications Name Sig Start Date Stop Date Status Note LastModified by Organization Details LastModified Time losartan 50 mg tablet Take 1 tab by mouth daily- (replaces lisinopri l) 04/24 completed Not Available Not Available Not Available cyclobenzap rine 10 mg tablet Take 1 tablet by mouth twice a day as needed 11/08 completed Not Available Not Available Not Available bupropion HCl SR 150 mg tablet,12 hr sustained-r elease Take 1 tab by mouth daily for one week then twice daily 01/20 completed Not Available Not Available Not Available Diltiazem CD 180 mg capsule,ext ended release 1tab qday 11/19 completed Not Available Not Available Not Available doxycycline hyclate 100 mg capsule Take 2 capsule by mouth single dose 01/04 completed Not Available Not Available Not Available diltiazem ER 180 mg capsule,24 hr,extended release Take 1 by mouth daily 04/24 completed Not Available Not Available Not Available azithromyci n 250 mg tablet Take 2 by mouth now, then take 1 by mouth daily x 4 days 04/22 completed Not Available Not Available Not Available diltiazem CD 240 mg capsule,ext ended release 24 hr TAKE ONE CAPSULE BY MOUTH EVERY DAY active Not Available Not Available No t Available meloxicam 15 mg tablet Take 1 tablet by mouth once a day 11/08 completed Not Available Not Available Not Available lisinopril 20 mg tablet Take 1 by mouth daily 06/09 completed Not Available Not Available Not Available prednisone 20 mg tablet Two tabs daily PO for one week 09/28 completed Not Available Not Available Not Available amlodipine 5 mg tablet Take 2 tablet by mouth as directed TAKE TWO TABLETS BY MOUTH EVERY DAY 07/17 completed Not Available Not Available Not Available doxycycline monohydrate 100 mg tablet Take 1 tablet by mouth twice a day 05/07 completed Not Available Not Available Not Available amoxicillin 500 mg tablet 1 CAP TID 11/17 completed Not Available Not Available Not Available amoxicillin 875 mg tablet take 1 tab by mouth twice daily 05/16 completed Not Available Not Available Not Available Nifedipine ER 30 mg tablet,exte nded release 1tab qday 10/02 completed Not Available Not Available Not Available amlodipine 10 mg tablet TAKE ONE TABLET BY MOUTH EVERY DAY active Not Available Not Available No t Available hydrochloro thiazide 25 mg tablet 1TAB daily 03/31 completed Not Available Not Available Not Available lisinopril 40 mg tablet .5tab qday 02/18 completed Not Available Not Available Not Available losartan 100 mg tablet TAKE ONE TABLET BY MOUTH EVERY DAY active Not Available Not Available No t Available doxycycline hyclate 100 mg tablet Take 1 tablet by mouth twice a day 05/10 completed Not Available Not Available Not Available azithromyci n 500 mg tablet take two tablets by mouth now, then one tablet daily for four days 2018 active Not Available Not Available Not Avai lable Commit 4 mg buccal lozenge suck on one lozenge every 1-2 ours with max 56 lozenges in 6 hours 12/15 completed Not Available Not Available Not Available DILT-XR 240 mg capsule, extended release Take 1cap by mouth daily 05/14 completed Not Available Not Available Not Available ProAir HFA 90 mcg/actuati on aerosol inhaler 1-2 every four to six hours as needed 05/07 completed Not Available Not Available Not Available Zostavax (PF) 1 inj qday 01/08 completed Not Available Not Available Not Available EpiPen 2-Jamie 0.3 mg/0.3 mL injection, auto-inject or Administe r 1 pen injector intramusc ularly single dose as directed for anaphylax is, and call 911 or go to ER 2020 active Not Available Not Available Not Avai lable Adults 50 Plus 0.4 mg-300 mcg-250 mcg tablet Take 1 tablet by mouth daily 2016 active Not Available Not Available Not Avai lable Adults Multivitami n 18 mg iron-400 mcg-25 mcg tablet Take 1 tablet by mouth once a day 2016 active Not Available Not Available Not Avai lable Vitals Date Recorded Body height Body mass index (BMI) Body weight Oxygen saturation Oxygen saturation in Arterial blood by Pulse oximetry Heart rate Systolic blood pressure Diastolic blood pressure Provider Name and Address Organization Details Last Updated DateTime 4 168.91 cm 25.1 kg/m2 30876.9 3 g 96 % 96 % 55 /min 124 mm[Hg] 60 mm[Hg] Antonino West RN [facility] 4 09:11:22 Date Recorded Body height Body mass index (BMI) Body weight Body temperature Respiratory rate Oxygen saturation Oxygen saturation in Arterial blood by Pulse oximetry Heart rate Systolic blood pressure Diastolic blood pressure Provider Name and Address Organization Details Last Updated DateTime 4 167.64 cm 26.1 kg/m2 40621.1 7 g 97 [degF] 18 /min 99 % 99 % 68 /min 122 mm[Hg] 60 mm[Hg] LAKSHMI STAUFFER LPN [facility] 08:00:42 Social History Question Answer Notes LastModified by Organizat ion Details LastModified Time Tobacco Smoking Status Current Every Day Smoker LAKSHMI STAUFFER LPN [facility], [facility] 05/06/2024 08:01:46 What Was The Date Of Your Most Recent Tobacco Screening? 05/06/2024 Information not available 05/06/2024 How Much Tobacco Do You Smoke? 0.5 PPD Information not available 05/06/2024 Has Tobacco Cessation Counseling Been Provided? Yes Information not available 05/06/2024 On What Date Was Tobacco Cessation Counseling Provided? 05/06/2024 Information not available 05/06/2024 Do You Or Have You Ever Used Any Other Forms Of Tobacco Or Nicotine? No Information not available 05/06/2024 Sex: Male Functional Status None recorded. Mental Status None recorded. Family History Relationship Description Onset Age of this Age Resolved Age Notes LastModified by Organization Details LastModified Time Mother Family history of acute medical disorder cerebr al hemorr yon [email or web address] Not available 06/14/2023 03:52:29 Father Family history of heart failure [place] jaime. Not available 2022 03:52:31 Notes:*Problem: He notes he was orphaned at age 7. Father of possibly an [place] in his 40s. Mother a cerebral hemorrhage in her 40s as well. 6 sibs. 2 , one aspiration and another of trauma. There is HTN and breast cancer in the family. Medical History No medical history recorded. Immunizations Vaccine Type Date Status Provider Name and Address Organization Details Recorded Time Influenza, high-dose, trivalent, PF 05/06/2024 completed BALDO CANALES [address], [place], [address], [facility] 05/06/2024 08:28:09 COVID-19, mRNA, LNP-S, PF, paula-sucrose, 30 mcg/0.3 mL 05/06/[address], [place], [address], [facility] 05/06/2024 08:28:09 Tdap 11/22/2011 completed Not Available [facility] 06:29:56 Tdap 05/10/2021 completed Not Available [facility] 06:29:56 Influenza, split virus, quadrivalent, PF 07/23/2019 completed Not Available [facility] 06/14/2023 06:29:56 zoster recombinant 12/15/2018 completed Not Available [facility] 06/14/2023 06:29:56 zoster recombinant 06/16/2018 completed Not Available [facility] 06/14/2023 06:29:56 Influenza, high-dose, quadrivalent, PF 05/07/2022 completed Not Available [facility] 06/14/2023 06:29:56 Influenza, high-dose, quadrivalent, PF 05/10/2021 completed Not Available [facility] 06/14/2023 06:29:56 COVID-19, mRNA, LNP-S, PF, 100 mcg/0.5mL dose or 50 mcg/0.25mL dose 10/25/2020 completed Not Available [facility] 06/14/2023 06:29:56 COVID-19, mRNA, LNP-S, PF, 100 mcg/0.5mL dose or 50 mcg/0.25mL dose 11/22/2020 completed Not Available [facility] 06/14/2023 06:29:56 Pneumococcal conjugate PCV20, polysaccharide UHR108 conjugate, adjuvant, PF 05/07/2022 completed Not Available [facility] 06/14/2023 06:29:57 pneumococcal polysaccharide PPV23 06/16/2018 completed Not Available [facility] 2022 06:29:57 Influenza, high-dose, quadrivalent, PF 05/06/2023 completed Not Available [facility] 08/16/2023 05:31:40 Past Encounters Encounter ID Performer Location Encounter Start Date Encounter Closed Date Diagnosis/Indication Diagnosis SNOMED-CT Code Diagnosis ICD10 Code [id number] [facility] [address] [place] [address] 11/05/2023 08:58:31 11/05/2023 09:40:02 Alcohol abuse 36581480 F10.10 Essential hypertension 79836852 I10 Tobacco de pendence caused by cigarettes 2843202459 7464103 F17.210 Adjustment disorder with mixed anxiety and depressed mood 063851088 F43.23 Benign herrera plasm of colon 43308372 D12.6 [id number] [facility] [address] [place] [address] 05/06/2024 07:54:05 05/06/2024 12:00:54 Active or passive immunization 793972451 Z23 Tobacco de pendence caused by cigarettes 2383985714 3198780 F17.210 Alcohol abuse 58535738 F 10.10 Essential hypertension 60418351 I10 Health Concerns Section Related Observation LastModified by Organization Detai ls LastModified Time None Recorded Concern Status LastModified by Organization Details LastModified Time None Recorded Advance Directives Directive None Recorded Payers Encounter Date Sequence Insurance Name Policy Number Policy Lea Covered Member ID Lea Member ID Guarantor Name 11/05/2023 1 [place] [employer] Dean L Genevieve [id number] Dean L Genevieve 05/06/2024 1 [place] [employer] Dean L Genevieve [id number] Dean L Genevieve Notes Date Note Type Note Provider Name and Address Organization Details Recorded Time 11/05/2023 text/html HPI Notes: Hypertension F/U Reported by patient. Medications: taking medications as directed Lifestyle: regular exercise Associated Symptoms: no chest pain; no palpitations cc follow up chronic issues hx of TA - had colonoscopy done 10/29, polyps x two, no TA. repeat in 5 years HTN - blood pressure is well controlled, needs refills Had to put his pig down, letting his older animals and not replacing. Smoker - 3/4 ppd, buys a pack at a time Alcohol - thinks he drinks to much but is putting on the brakes BALDO CANALES [address], [place], [address], [facility]. 11/05/2023 11:06:47 05/06/2024 text/html HPI Notes: cc HT N, adjustment d/o, alcohol, tobacco dep HTN - blood pressure is well controlled. Smoking - cutting back, now about half a pack per day, buys a pack every 3 days. LDCT scan was Alcohol use - still feels he could cut back on his bourbon daily (4-6 nightly) Got a new grandson, came 3-4 weeks early, lost a bunch of weight and had jaundice, but doing better now. Gaining 5 ounces a week. Sees him a lot No confusion or falls Adjustment d/o with mixed anxiety and depression - mood has been pretty good, does have some existential dread Colonoscopy done 10/30/2023 BALDO CANALES [address], [place], [address], [facility]. 05/06/2024 08:49:32
--- OUTSIDE RECORDS SUMMARY | 2024-05-06 15:21 | XMS_ITS | Encounter Summary ---
[place] [address] Care Team Providers Care Storm Sash Maker Name Role Phone Bryce Blankenship MD Primary Care Provider [phone] Reason for Visit * Reason Comments Follow-up Skin Check Encounter Details Date Type Department Care Team (Late st Contact Info) Description 06/25/2023 1:45 PM EST Office Visit Dermatology at [place] [address] [facility] [address] Jose Armando Mcduffie MD [address] [facility], [place] [address] [place] (actinic keratosis) Social History Tobacco Use Types Packs/Day Years [...] as of this encounter Progress Notes * Jose Armando Mcduffie MD - 06/25/2023 1:45 PM EST Problem: Skin lesions of concern Dean follows up after last being seen in 2019. He is back evaluation of a lesion on his nose. He does not desire examination of the chest or back. Physical examination reveals a pleasant 68-year-old gentleman who presents with a small actinic keratosis on the left mid nasal bridge, and a small seborrheic keratosis on the right sabianism. Assessment plan: Actinic keratosis left nasal bridge 1. LN 2 x 2 applied to site 2. Return to clinic as needed. Seborrheic keratosis right sabianism 1. Could consider LN2 for the site CC: Bryce Blankenship MD documented in this encounter Plan of Treatment Not on file documented as of this encounter Visit Diagnoses Diagnosis AK (actinic keratosis) Actinic keratosis documented in this encounter Care Teams Storm Sash Maker Relationship Specialty Start Date End Date Bryce Blankenship MD [address] [place] [id number] PCP - General 11/24/10 documented as of this encounter
--- OUTSIDE RECORDS SUMMARY | 2024-05-06 15:21 | XMS_ITS | Encounter Summary ---
[place] [address] Care Team Providers Care Water Purification Chemist Name Role Phone Bryce Blankenship MD Primary Care Provider [phone] Reason for Referral * Diagnostic Test (Routine) - Closed Specialty Diagnoses / Procedures Referred By Contac t Referred To Contact Procedures MRI Lumbar Spine wwo Contrast [facility] [place] [address] Referral ID Status Reason Start Date Expiration Date V isits Requested Visits Authorized [id number] Closed Specialty Service Requested 11/10/2020 05/12/2022 1 1 Encounter Details Date Type Department Care Team (Late st Contact Info) Description 11/10/2020 External Results [facility] [place] [address] Provider, Scanning Social History Tobacco Use Types Packs/Day Years [...] Comments MRI LUMBAR SPINE WITH/WO CONTRAST Routine 10/31/2020 documented in this encounter Results * MRI Lumbar Spine wwo Contrast (10/31/2020) Anatomical Region Laterality Modality L-spine Magnetic Resonan ce Historical Provider MD SNELL MRI ORDERABLE S documented in this encounter Visit Diagnoses Not on filedocumented in this encounter Care Teams Water Purification Chemist Relationship Specialty Start Date End Date Bryce Blankenship MD [address] [place] [address] PCP - General 11/24/10 documented as of this encounter
--- OUTSIDE RECORDS SUMMARY | 2024-05-06 15:21 | XMS_ITS | Encounter Summary ---
Author Organization [facility] Address [facility] [place] [address] Care Team Providers Care Vp Integration Name Role Phone Bryce Blankenship MD Primary Care Provider [phone] Encounter Details Date Type Department Care Team (Latest Contact Info) Description 11/01/2020 7:41 AM EDT - 11/01/2020 11:59 PM EDT Hospital Encounter XRay at [address] [place] [address] Pravin Boo MD [facility] [place] [address] Spinal stenosis of lumbar region, unspecified whether neurogenic claudication present; Foraminal stenosis of lumbar region Discharge Disposition: Home Social History Tobacco Use [...] 100 mg Tablet 1 tablet daily. 02/01/2018 cyclobenzaprine (Flexeril) 10 mg Tablet TAKE ONE TABLET BY MOUTH TWICE A DAY NEEDED FOR SEVERE BACK PAIN 10/12/2020 06/25/2023 oxyCODONE 5 mg Capsule Take 5 mg by mouth every 4 hours as needed. 06/25/2023 amLODIPine (Norvasc) 5 mg Tablet TAKE TWO TABLETS BY MOUTH EVERY DAY 05/11/2020 06/25/2023 documented as of this encounter Plan of Treatment Not on file documented as of this encounter Procedures Procedure Name Priority Date/Time Associated Diagnosis Comments XR LUMBAR SPINE 2 OR 3 VIEWS Routine 11/01/2020 7:51 AM EDT Spinal stenosis of lumbar region, unspecified whether neurogenic claudication present Foraminal stenosis of lumbar region documented in this encounter Results * XR [...] prior to speaking to our radiologists. ? Electronically signed by: Morgan Lunsford MD, [facility] ([phone]), at 11/01/2020 8:58 AM Narrative 11/01/2020 8:58 AM EDT EXAMINATION: XR [...] claudication documented in this encounter Care Teams Vp Integration Relationship Specialty Start Date End Date Bryce Blankenship MD [address] [place] [address] PCP - General 11/24/10 documented as of this encounter
--- OUTSIDE RECORDS SUMMARY | 2024-05-06 15:21 | XMS_ITS | Encounter Summary ---
Author Organization [place] [address] Care Team Providers Care Pinsetter Mechanic Helper Name Role Phone Bryce Blankenship MD Primary Care Provider [phone] Reason for Visit * Reason Comments Skin Check * Consultation (Routine) - Specialty Diagnoses / Procedures Referred By Contac t Referred To Contact Dermatology Diagnoses Other skin changes due to chronic exposure to nonionizing radiation Actinic Skin Damage; New Patient-Notes Received Procedures Consult Bryce Blankenship MD [address] [place] [address] Jose Armando Mcduffie MD [address] [place] [address], [facility] [place] [address] Referral ID Status Reason Start Date Expiration Date V isits Requested Visits Authorized [id number] Consult, Test & Treat PCP Updated and/or Approved 01/21/2020 07/22/2020 6 6 Encounter Details Date Type Department Care Team (Late st Contact Info) Description 07/05/2020 10:00 AM EST Office Visit Dermatology at [address] [id number] Jose Armando Mcduffie MD [address] [place] [address], [facility] [place], [place] [id number] [place] (actinic keratosis) Social History Tobacco Use [...] Notes * Jose Armando Mcduffie MD - 07/05/2020 10:00 AM EST Problem: New patient initial visit for skin check Dean is a 65-year-old gentleman who comes today concerned by a lesion on his right orthodoxy. He notedthe development of this growth this spring. He has no past history of skin cancer or melanoma. The site will build up a little bit scabby peel off and then grow back again. He does not desire total body examination but just a sun exposed skin examination. Physical examination reveals an irregularly hyperkeratotic papule non-pigmented on the right orthodoxy. It is consistent with an actinic keratosis. Examination of the rest of the face is unremarkable. Assessment plan: Actinic keratosis right orthodoxy, right remainder of facial/sinus post skin examination benign 1. LN2 x2 applied to single site 2. Discussed post LN2 care 3. Discussed diagnosis actinic keratosis and its nonmalignant but premalignant nature 4. Return to clinic here as needed for new lesion/concerns. CC: Bryce Blankenship MD documented in this encounter Plan of Treatment Not on file documented as of this encounter Visit Diagnoses Diagnosis AK (actinic keratosis) Actinic keratosis documented in this encounter Care Teams Pinsetter Mechanic Helper Relationship Specialty Start Date End Date Bryce Blankenship MD [address] [place] [address] PCP - General 11/24/10 documented as of this encounter
--- OUTSIDE RECORDS SUMMARY | 2024-05-06 15:21 | XMS_ITS | Encounter Summary ---
[place] [address] Care Team Providers Care Gatekeeper Name Role Phone Bryce Blankenship MD Primary Care Provider [phone] Encounter Details Date Type Department Care Team (Latest Contact Info) Description 06/25/2023 Travel Social History Tobacco Use Types Packs/Day Years [...] on filedocumented in this encounter Care Teams Gatekeeper Relationship Specialty Start Date End Date Bryce Blankenship MD [address] [place] [address] PCP - General 11/24/10 documented as of this encounter
--- OUTSIDE RECORDS SUMMARY | 2024-05-06 15:22 | XMS_ITS | Encounter Summary ---
Author Organization [facility] [place] [address] Care Team Providers Care Splitting Machine Operator Name Role Phone Bashir Bardales MD Primary Care Provider [phone] Encounter Details Date Type Department Care Team (Late st Contact Info) Description 11/17/2010 [place] [address] Joseph Aldridge MD [facility] [place] [address] Social History Tobacco Use Types Packs/Day Years Used Date Smoking Tobacco: Never Assessed Sex and Gender Information Value Date Recorded Sex Assigned at Not on file Gender Identity Not on file Sexual Orientation Not on file documented as of this encounter Plan of Treatment Not on file documented as of this encounter Visit Diagnoses Not on filedocumented in this encounter Care Teams Splitting Machine Operator Relationship Specialty Start Date End Date Bashir Bardales MD [address] [place] [address] PCP - General 06/27/10 11/23/10 documented as of this encounter
--- OUTSIDE RECORDS SUMMARY | 2024-05-06 15:22 | XMS_ITS | Encounter Summary ---
Author Organization [facility] Address [facility] [place] [address] Care Team Providers Care Lieutenant Fire Fighter Name Role Phone Bryce Blankenship MD Primary Care Provider [phone] Reason for Visit * Reason Comments Spots and/or Floaters pt went for route exam and found ? hole ?le Encounter Details Date Type Department Care Team (Late st Contact Info) Description 11/24/2010 9:15 AM EDT Office [place] [address] Joseph Aldridge MD [facility] DR [place] [address] Retinal scar (Primary Dx) Discharge Disposition: Home Social History Tobacco Use Types Packs/Day Years Used Date Smoking Tobacco: Smoker, Current Status Unknown Alcohol Use Standard Drinks/Week Comments Yes 3 (1 standard drink = 0.6 oz pur e alcohol) daily Sex and Gender Information Value Date Recorded Sex Assigned at Not on file Gender Identity Not on file Sexual Orientation Not on file documented as of this encounter Progress Notes * Joseph Aldridge MD - 11/24/2010 1:24 PM EDT November 24, 2010 Maryann Lay OD Muck Operator [address] [place] [address] RE: Dean Genevieve A#: [id number] Lay: I had the pleasure of seeing your patient, Dean Vallejo, for formal consultation on 11/24/2010. As you know, he is a delightful gentleman in whom you suspected high-risk retinal pathology with a possible macular hole in the left eye. 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 At 2:30 o'clock in the anterior periphery, there is a chorioretinal scar with predominantly atrophic features. This does not represent a true full-thickness macular hole. Importantly, I was able to secure an excellent view with a three-mirror contact lens. This revealed the lesion to be chronic with good pigmentation. No subretinal fluid, traction, or other features were defined. This cluster of pigmentary changes and atrophy may be the result of trauma such as commotio retinae which occurred many years if not decades ago. Given the absence of symptoms and any full-thickness break, I have recommended observation. Still, however, I have asked Dean to remain vigilant and to report promptly for any flashes, floaters, visual field changes, or other symptoms which may portend a retinal tear or detachment. Also very importantly, I examined the right eye and I did not find any high-risk pathology. He does have a few central drusen in the macula, but these do not appear to be age related nor do they appeared to be high risk at this time. I have recommended to Dean that he return to see you in three to four months for continuity of care or sooner per your directive. Thank you kindly for asking me to provide consultation for this nice gentleman. As always, should you or the patient have any questions or concerns, please do not hesitate to contact me at anytime. The best way is to reach me though my safety admin assistant, Maria, at [phone]. Sincerely, Joseph Aldridge M.D. documented in this encounter Nursing Notes * 11/24/2010 9:15 AM EDT >> RISHI CROCKER, AALIYAH SatNov 24, 2010 9:29 AM Description:Patient presents with: Spots and/or Floaters - pt went for route exam and found ? hole ?le Location: left eye Duration: 3 months Rapidity of Onset:unknown Severity: 1 Condition:No Change Pain:none Associated Symptoms High myope documented in this encounter Plan of Treatment Not on file documented as of this encounter Visit Diagnoses Diagnosis Retinal scar- Primary Chorioretinal scar, unspecified documented in this encounter Care Teams Lieutenant Fire Fighter Relationship Specialty Start Date End Date Bryce Blankenship MD [address] [address] PCP - General 11/24/10 documented as of this encounter
--- OUTSIDE RECORDS SUMMARY | 2024-05-06 15:22 | XMS_ITS | Encounter Summary ---
Author Organization [facility] Address [address] [place] [address] Care Team Providers Care Avian Keeper Name Role Phone Cherry Carrillo MD Primary Care Provider [phone] Bryce Blankenship MD Primary Care Provider [phone] Encounter Details Date Type Department Care Team (Late st Contact Info) Description 09/29/2020 Lab Requisition [facility] Pathology & Laboratory Medicine - [address] [address] Chuy Landis MD [address] [place] [phone] Encounter for other general examination Social History Tobacco Use Types Packs/Day Years Used Date Smoking Tobacco: Never Assessed Interpersonal Safety Answer Date Record ed Physically Hurt Never 03/06/2020 Verbally Threaten Not on file 03/06/2020 Sex and Gender Information Value Date Recorded Sex Assigned at Not on file Gender Identity Not on file Sexual Orientation Not on file documented as of this encounter Plan of Treatment Not on file documented as of this encounter Procedures Procedure Name Priority Date/Time Associated Diagnosis Comments SURGICAL PATHOLOGY Today 09/29/2020 13 :10 EST documented in this encounter Results * SURGICAL PATHOLOGY (09/29/2020 13:10 EST) Final Diagnosis A. COLON, PROXIMAL TRANSVERSE, BIOPSY: - Tubular adenoma B. COLON, DESCENDING, BIOPSY: - Tubular adenoma C. COLON DESCENDING #2, BIOPSY: - Sessile serrated adenoma D. RECTUM, BIOPSY: - Hyperplastic polyp 10/04/2020 16:00 [facility] Attestation By the signature below, the attending physician certifies that they have 1) personally conducted a gross and/or microscopic examination of the described specimen(s), and/or personally interpreted the results of laboratory testing of the described specimen(s), and 2) personally rendered or confirmed the above diagnosis. 10/04/2020 16:00 [facility] at 1600 Clinical History History of colon polyps. 10/04/2020 16:00 [facility] Gross Description A. Received in formalin labelled with proper patient identification (initials L, M) and proximal transverse colon polyp are 3 fragments of flores tissue; each measuring 0.2 x 0.2 x 0.2 cm. The specimens are submitted in A1. B. Received in formalin labelled with proper patient identification (initials L, M) and descending colon polyp is a single fragment of flores tissue (0.3 x 0.3 x 0.2 cm). The specimen is submitted in B1. C. Received in formalin labelled with proper patient identification (initials L, M) and descending colon polyp # 2 is a single fragment of flores polypoid tissue (0.3 x 0.3 x 0.2 cm). The specimen is submitted in C1. D. Received in formalin labelled with proper patient identification (initials L, M) and rectum polyp is a single fragment of flores tissue (0.3 x 0.2 x 0.2 cm). The specimen is submitted in D1. PALMA FIGUEROA(ASCP) 09/30/2020 8:14 10/04/2020 16:00 [facility] Performing Lab [facility] 10/04/2020 16:00 [facility] Scanned Images 10/04/2020 16:00 [facility] Tissue SPECIMEN FROM RECTUM / Unknown 09/29/2020 13:10 EST 09/29/2020 23:16 EST Tissue specimen (specimen) DESCENDING COLON STRUCTURE / Unknown 09/29/2020 13:10 EST 09/29/2020 23:16 EST Tissue specimen (specimen) DESCENDING COLON STRUCTURE / Unknown 09/29/2020 13:10 EST 09/29/2020 23:16 EST Tissue specimen (specimen) SPECIMEN FROM RECTUM / Unknown 09/29/2020 13:10 EST 09/29/2020 23:16 EST Chuy Landis MD PATHOLOGY [facility] [address] [place] [address] documented in this encounter Visit Diagnoses Diagnosis Encounter for other general examination documented in this encounter Care Teams Avian Keeper Relationship Specialty Start Date End Date Cherry Carrillo MD PCP - General 10/01/14 10/03/23 Bryce Blankenship MD [address] [place] [address] PCP - General Internal Medicine - Primary Care 10/04/23 documented as of this encounter
--- OUTSIDE RECORDS SUMMARY | 2024-05-06 15:22 | XMS_ITS | Referral Summary ---
Author Organization [facility] Address [address] [place] [address] Care Team Providers Care Composition Teacher Name Role Phone Bryce Blankenship MD Primary Care Provider [phone] Social History Tobacco Use Types Packs/Day Years Used Date Smoking Tobacco: Never Assessed Interpersonal Safety Answer Date Record ed Physically Hurt Never 03/06/2020 Verbally Threaten Not on file 03/06/2020 Sex and Gender Information Value Date Recorded Sex Assigned at Not on file Gender Identity Not on file Sexual Orientation Not on file Plan of Treatment Not on file Care Teams Composition Teacher Relationship Specialty Start Date End Date Bryce Blankenship MD [address] [place] [address] PCP - General Internal Medicine - Primary Care 10/04/23
--- OUTSIDE RECORDS SUMMARY | 2024-05-06 15:22 | XMS_ITS | Encounter Summary ---
Author Organization [facility] [place] [address] Care Team Providers Care Hot Billet Shear Operator Name Role Phone Bashir Bardales MD Primary Care Provider [phone] Encounter Details Date Type Department Care Team (Late st Contact Info) Description 11/17/2010 Abstract [place] [address] Joseph Aldridge MD [facility] DR [place] [address] Social History Tobacco Use Types Packs/Day Years Used Date Smoking Tobacco: Never Assessed Sex and Gender Information Value Date Recorded Sex Assigned at Not on file Gender Identity Not on file Sexual Orientation Not on file documented as of this encounter Plan of Treatment Not on file documented as of this encounter Visit Diagnoses Not on filedocumented in this encounter Care Teams Hot Billet Shear Operator Relationship Specialty Start Date End Date Bashir Bardales MD [address] [place] [address] PCP - General 06/27/10 11/23/10 documented as of this encounter
--- OUTSIDE RECORDS SUMMARY | 2024-05-06 15:22 | XMS_ITS | Encounter Summary ---
Author Organization [facility] Address [address] [place] [address] Care Team Providers Care Skidder Loader Name Role Phone Unknown, Provider Primary Care Provider [phone] Encounter Details Date Type Department Care Team (Late st Contact Info) Description 09/28/2014 Results Only [facility] [phone] Annie Isbell MD [address] [place] [address] Social History Tobacco Use Types Packs/Day Years Used Date Smoking Tobacco: Never Assessed Sex and Gender Information Value Date Recorded Sex Assigned at Not on file Gender Identity Not on file Sexual Orientation Not on file documented as of this encounter Plan of Treatment Not on file documented as of this encounter Procedures Procedure Name Priority Date/Time Associated Diagnosis Comments SURGICAL PATHOLOGY Routine 09/28/2014 8:36 EST documented in this encounter Results * SURGICAL PATHOLOGY (09/28/2014 8:36 EST) Pathology Report: SURGICAL PATHOLOGY REPORT Reports generated via electronic interface contain original data; however they are lacking the format of the original report. Caution should be taken when reading/interpret ing unformatted reports. Name: ? JEVON VARGAS ? Accession #: ? [id number] ? : ? 1955 (Age: 59) ??M ? Collect Date: ? 09/28/2014 ? Location: ? [facility] ? Receive Date: ? 09/29/2014 ? Provider: ANNIE ISBELL MD Copy to: ? Final Pathologic Diagnosis: COLON, AT 60 CM, POLYP BIOPSY: - ??Portions of tubular adenoma (2); no high grade dysplasia. Document reviewed and electronically signed by: Hilda Mckinney MD Report ??Date: 09/30/2014 06:36 By the signature above, the attending physician certifies that he/she has personally conducted a gross and/or microscopic examination of the described specimens and rendered or confirmed the above diagnosis. Specimen(s) Received: Polyp on stalk Clinical History: Polyp 60 cm Gross Description: ? Received in formalin labelled with proper patient identification (initials L, M) and polyp 60 cm are two pink-flores polypoid tissues (0.5 x 0.3 x 0.1 cm and 0.4 x 0.4 x 0.3 cm). The margins are inked black. ??The smaller piece is bisected and entirely submitted in block 1 and the larger piece is bisected and entirely submitted in block 2. Eva Dhillon 09/29/2014 08:58 AM End of Report [facility] 09/28/2014 8:36 EST 09/29/2014 8:36 EST Annie Isbell MD PATHOLOGY ORDERABL ES [facility] [address] [place] [address] documented in this encounter Visit Diagnoses Not on filedocumented in this encounter Care Teams Skidder Loader Relationship Specialty Start Date End Date Unknown, Provider, PCP - General 09/28/14 09/30/14 documented as of this encounter
--- OUTSIDE RECORDS SUMMARY | 2024-05-06 15:22 | XMS_ITS | Encounter Summary ---
[place] [address] Care Team Providers Care Optical Glass Etcher Name Role Phone Bryce Blankenship MD Primary Care Provider [phone] Reason for Referral * Diagnostic Test (Routine) - Closed Specialty Diagnoses / Procedures Referred By Contac t Referred To Contact Radiology Diagnoses Acute midline low back pain with bilateral sciatica Status post lumbar surgery Procedures MRI Lumbar Spine wwo Contrast MRI Lumbar Spine wo Contrast (Generic) [place] [address] [place] [address] Referral ID Status Reason Start Date Expiration Date V isits Requested Visits Authorized [id number] Closed Specialty Service Requested 02/28/2018 04/28/2018 1 1 Reason for Visit * Reason Comments Back Pain lower Bilateral Leg Pain * Consultation (Routine) - Specialty Diagnoses / Procedures Referred By Contac t Referred To Contact Orthopaedics Diagnoses low back pain w/ sciatica/ ?lumbar images Chen Kent, ROUTE SALES ASSOCIATE [address] [place] [address] [facility] [place] [address] [place] [address] Referral ID Status Reason Start Date Expiration Date V isits Requested Visits Authorized [id number] Consult, Test & Treat PCP Updated and/or Approved 02/10/2018 08/13/2018 6 6 Encounter Details Date Type Department Care Team (Late st Contact Info) Description 02/28/2018 9:40 AM EDT Office Visit [facility] [place] [address] Deng Desai [place] [facility] [place] [address] Acute midline low back pain with bilateral sciatica; Left L5-S1 discectomy, 1989, Dr. Posadas. Social History Tobacco Use Types Packs/Day Years [...] Sign Reading Time Taken Comments Blood Pressure 127/88 02/28/2018 9:23 AM EDT Pulse - - Temperature - - Respiratory Rate - - Oxygen Saturation - - Inhaled Oxygen Concentration - - Weight 71.7 kg (158 lb) 02/28/2018 9:23 AM EDT Height 167.6 cm (5' 6) 02/28/2018 9:23 AM EDT Body Mass Index 25.5 02/28/2018 9:23 AM EDT documented in this encounter Progress Notes * Deng Desai PA - 02/28/2018 9:40 AM EDT Dean Vallejo is a 62-year-old gentleman seen today for about 1 year of low back pain with bilateral lower extremity pain. He reports that symptoms began around summer 2016 with fairly debilitating pain that began on his mid back and spread into his low back region but improved after some time, with medications. He has had a recent bout of increasing symptoms again around January/February of this year,which appears to affect the right more so than the left back pointing to pain over the lumbosacral regions, bilateral buttocks, and over the proximal posterior thighs. He finds the symptoms tend to relieve when he stands and walks and worsens when he sits. He denies much in the way of numbness or weakness with this. He had a course of physical therapy with home exercises, had naproxen, oral prednisone taper, and cyclobenzaprine which appears to have been helpful. He has discontinued these as oflate. He is known to us for prior history of one spine surgery which appears to have been a left L5-S1 discectomy performed by Dr. Kumar Posadas in 1989 with very good relief. He continues to smoke 1 pack per day. He has 4 servings of alcohol per day. 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 On exam today, this is a pleasant trim 62-year-old gentleman appears his stated age and is in no acute distress. His gait is normal. Is able to toe walk and heel walk without weakness. He stands withstraight spine level shoulders and pelvis without obvious spinal deformity. He has a well-healed midline lumbar incision entirely benign in appearance. Motor and sensory exam are without focal deficits. Peripheral pulses are palpable. Reflexes are symmetric +2 at both knees and +2 at the right ankle, diminished at the left ankle. Plain XRs of the lumbar spine performed earlier today was reviewed. On the AP view there is no scoliosis. On the lateral view there is no spondylolisthesis. No changes on the lateral flexion-extension views. This degeneration is most significant L4-L5 and L5-S1 levels where there is also extensive facet hypertrophy. Assessment/plan: Dean Vallejo is a 62-year-old gentleman seen today for chief complaint of low back pain and bilateral lower extremity radiation present over the past year with recurrence earlier this year. He appears to have had some interval improvement with oral anti-inflammatories, muscle relaxants, and oral prednisone. It is concerned however that he has had these recurrence of his symptoms as of late and I advised him that it would certainly be prudent to admit assess for neural compression given concern for diagnoses such as lumbar herniated disc, and lumbar spinal stenosis. He was agreeable to further evaluation with plain x-rays as performed above, as well as MRI of the lumbar spine without contrast to assess the underlying anatomy. documented in this encounter Plan of Treatment Not on file documented as of this encounter Results * MRI Lumbar Spine [...] projecting within the thecal sac from approximately L3-[id number] with a filum terminale lipoma Findings at [...] in context of the clinical situation (Reference- Sebastiank et al, [id number]). Findings: (Prevalence in patients without low back pain), discdegeneration (decreased T2 signal, height loss, bulge) (91%), disc T2-signal loss(83%), disc height loss (56%), disc bulge (64%), disc protrusion (32%), annularfissure (38%). 3:42 PM Leandro Watts MD IM MRI ORDERABLES * XR Lumbar Spine 2 Or 3 [...] discectomy, 1989, Dr. Posadas. Other postprocedural status Acute midline low back pain with bilateral sciatica Left L5-S1 discectomy, 1989, Dr. Posadas. Other postprocedural status Acute midline low back pain with bilateral sciatica Left L5-S1 discectomy, 1989, Dr. Posadas. Other postprocedural status documented in this encounter Care Teams Optical Glass Etcher Relationship Specialty Start Date End Date Bryce Blankenship MD [address] [place] [address] PCP - General 11/24/10 documented as of this encounter
--- OUTSIDE RECORDS SUMMARY | 2024-05-06 15:22 | XMS_ITS | Encounter Summary ---
Author Organization [facility] Address [address] [place] [address] Care Team Providers Care Fire Sprinkler Service Technician Name Role Phone Bryce Blankenship MD Primary Care Provider [phone] Encounter Details Date Type Department Care Team (Late st Contact Info) Description 10/30/2023 Lab Requisition [facility] Pathology & Laboratory Medicine - [address] [address] [address], [place] [address] Encounter for other general examination Social History [...] Date/Time Associated Diagnosis Comments SURGICAL PATHOLOGY Today 10/30/2023 12 :38 EDT documented in this encounter Results * SURGICAL PATHOLOGY (10/30/2023 12:38 EDT) Note to Patient The following pathology results have been interpreted by your pathologist and may be available to you before your health provider has had the opportunity to review them. Please allow time for your provider to receive these results and explore management options, if applicable. 11/04/2023 17:16 EDT [facility] Final Diagnosis A. COLON, RECTOSIGMOID, POLYP, BIOPSY: - Colonic mucosa without significant diagnostic abnormality. B. RECTUM, POLYP, BIOPSY: - Cauterized colonic mucosa without significant diagnostic abnormality. 11/04/2023 17:16 [facility] Attestation By the signature below, the attending physician certifies that they have 1) personally conducted a gross and/or microscopic examination of the described specimen(s), and/or personally interpreted the results of laboratory testing of the described specimen(s), and 2) personally rendered or confirmed the above diagnosis. 11/04/2023 17:16 [facility] at 1716 Clinical History Screening, polyps 11/04/2023 17:16 [facility] Gross Description A. Received in formalin labelled with proper patient identification (initials L, M) and rectosigmoid polyp are 2 fragments of flores tissue (each averaging 0.1 x 0.1 x 0.1 cm). The specimen is entirely submitted in A1. B. Received in formalin labelled with proper patient identification (initials L, M) and rectal polyp is a single fragment of flores tissue (0.3 x 0.3 x 0.2 cm). The specimen is entirely submitted in B1. PALMA DAS(ASCP) 11/01/2023 9:12 11/04/2023 17:16 [facility] Performing Lab [facility] 11/04/2023 17:16 [facility] Scanned Images 11/04/2023 17:16 [facility] Tissue SPECIMEN FROM RECTUM / Unknown 10/30/2023 12:38 EDT 11/01/2023 8:22 EDT Tissue specimen (specimen) SPECIMEN FROM RECTUM / Unknown 10/30/2023 12:38 EDT 11/01/2023 8:23 EDT Dudley Colmenares DO PATHOLOGY ORDERABL ES [facility] [address] [place] [address] documented in this encounter Visit Diagnoses Diagnosis Encounter for other general examination documented in this encounter Care Teams Fire Sprinkler Service Technician Relationship Specialty Start Date End Date Bryce Blankenship MD [address] [place] [address] PCP - General Internal Medicine - Primary Care 10/04/23 documented as of this encounter
--- OUTSIDE RECORDS SUMMARY | 2024-05-06 15:22 | XMS_ITS | Encounter Summary ---
Author Organization [facility] Address [address] [place] [address] Care Team Providers Care Intelligence Clerk Name Role Phone Cherry Carrillo MD Primary Care Provider [phone] Bryce Blankenship MD Primary Care Provider [phone] Encounter Details Date Type Department Care Team (Late st Contact Info) Description 09/23/2020 Lab Requisition [facility] Pathology & Laboratory Medicine - [address] [address] Outr Resulting Lab, Provider Social History Tobacco Use Types Packs/Day Years [...] Procedure Name Priority Date/Time Associated Diagnosis Comments ZZCOVID-19 TEST [facility] PCR Today 09/23/2020 9:51 EST COVID-19 TESTING Routine 09/23/2020 9:51 EST documented in this encounter Results * COVID-19 TEST [facility] PCR (09/23/2020 9:51 EST) Swab ENTIRE NASOPHARYNX / Unknown 09/23/2020 9:51 EST 09/23/2020 16:24 EST Provider Outr Resulting Lab MICROBIOLOGY - GENERAL ORDERABLES [facility] [address] [place] [address] * COVID-19 TESTING (09/23/2020 9:51 EST) COVID-19 rt-PCR Result Negative Negative 09/24/2020 13:49 EST [facility] Comment: This test was developed and its performance characteristics determined by [facility]. It has not been cleared or approved by the US Food and Drug Administration. FDA does not require this test to go through premarket FDA review. This test is used for clinical purposes. It should not be regarded as investigational or for research. This laboratory is certified under the Clinical Laboratory Improvement Amendments (CLIA) as qualified to perform high complexity clinical laboratory testing. This test is based on the [facility] COVID-19 Emergency Use Authorization (EUA) assay, with minor modification as defined by the FDA Performed on the Pro V&V 7 Pro RT-PCR System. This test has not been FDA cleared or approved. This test has been authorized by FDA under an EUA for use by authorized laboratories. This test has been authorized only for detection of nucleic acid from 2019-nCoV, not for any other viruses or pathogens. This test is only authorized for the duration of the declaration that circumstances exist justifying the authorization of emergency use of in vitro diagnostic tests for detection and/or diagnosis of 2019-nCoV under section 564(b)(1) of Act, 21 U.S.C ?? 360bbb-3(b) (1), unless the authorization is terminated or revoked sooner. Negative results do not preclude 2019-nCoV infection and should not be used as the sole basis for treatment or other patient management decisions. Negative results must be combined with clinical observations, patient history, and epidemiological information. Performing Lab [facility] 09/24/2020 13:49 EST [facility] Swab 09/23/2020 9:51 EST 09/23/2020 16:24 EST Provider Outr Resulting Lab MICROBIOLOGY - GENERAL ORDERABLES [facility] [address] [place] [address] documented in this encounter Visit Diagnoses Not on filedocumented in this encounter Care Teams Intelligence Clerk Relationship Specialty Start Date End Date Cherry Carrillo MD PCP - General 10/01/14 10/03/23 Bryce Blankenship MD [address] [place] [address] PCP - General Internal Medicine - Primary Care 10/04/23 documented as of this encounter
--- OUTSIDE RECORDS SUMMARY | 2024-05-06 15:22 | XMS_ITS | Encounter Summary ---
Author Organization [facility] Address [address] [place] [address] Care Team Providers Care Face Hardener Name Role Phone Cherry Carrillo MD Primary Care Provider [phone] Encounter Details Date Type Department Care Team (Late st Contact Info) Description 09/29/2018 Results Only [facility] [phone] Chion Avila MD [address] [place] [id number] Social History Tobacco Use Types Packs/Day Years Used Date Smoking Tobacco: Never Assessed Sex and Gender Information Value Date Recorded Sex Assigned at Not on file Gender Identity Not on file Sexual Orientation Not on file documented as of this encounter Plan of Treatment Not on file documented as of this encounter Procedures Procedure Name Priority Date/Time Associated Diagnosis Comments SURGICAL PATHOLOGY Routine 09/29/2018 8:38 EST documented in this encounter Results * SURGICAL PATHOLOGY (09/29/2018 8:38 EST) Pathology Report: SURGICAL PATHOLOGY REPORT Reports generated via electronic interface contain original data; however they are lacking the format of the original report. Caution should be taken when reading/interpret ing unformatted reports. Name: ? JEVON VARGAS ? Accession #: ? [id number] ? : ? 1955 (Age: 63) ??M ? Collect Date: ? 09/29/2018 ? Location: ? [facility] ? Receive Date: ? 09/29/2018 ? Provider: CHINO AVILA II, MD Copy to: ? Final Pathologic Diagnosis: A. colon, hepatic flexure, polyp, biopsy: - ??Fragments of sessile serrated adenoma. B. colon, transverse, polyp, biopsy: - ??Fragments of hyperplastic polyp with a lymphoid aggregate. - ??Subepithelial fibrofatty tissue is present. ?? C. 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 - ??See comment. ?? D. distal rectum, polyp, biopsy: - ??Fragment of hyperplastic polyp. E. rectum, polyp, biopsy: - ??Fragment of hyperplastic polyp. F. distal rectum, polyp, biopsy: - ??Fragment of hyperplastic polyp. Comment: Part C. polyp is focally complex with also with processing artifact, limiting full interpretation. In this focal area, high-grade dysplasia cannot be excluded. Document reviewed and electronically signed by: JOHN PANTOJA MD Report ??Date: 10/02/2018 13:42 By the signature above, the attending physician certifies that he/she has personally conducted a gross and/or microscopic examination of the described specimens and rendered or confirmed the above diagnosis. Specimen(s) Received: A. ??Hepatic flexure polyp B. ??Transverse colon polyp (proximal) C. ??Distal transverse colon polyp D. ??Distal rectum polyp E. ??Hyperplastic rectal polyp F. ??Hyperplastic distal rectal polyp Clinical History: Hx of tubular adenoma; colon polyps T col and R Gross Description: A. ?Received in formalin labelled with proper patient identification (initials L, M) and hepatic flexure polyp is a flores-brown polyp measuring 1.0 x 0.5 x 0.4 cm. Inked, trisected and submitted entirely in block A1. B. ?Received in formalin labelled with proper patient identification (initials L, M) and transverse colon polyp) proximal) is a light flores biopsy measuring 0.5 x 0.4 x 0.1 cm. Bisected and submitted entirely in block B1. C. ?Received in formalin labelled with proper patient identification (initials L, M) and distal transverse colon polyp is a lobulated flores-brown polypoid tissue measuring 0.8 x 0.6 x 0.5 cm. The margin is inked black and the specimen is bisected and submitted entirely in block C1. D. ?Received in formalin labelled with proper patient identification (initials L, M) and distal rectum polyp is a flores biopsy measuring 0.2 x 0.1 x 0.1 cm. Submitted intact in block D1. E. ?Received in formalin labelled with proper patient identification (initials L, M) and hyperplastic rectal polyp is a flores biopsy measuring 0.3 x 0.2 x 0.2 cm. Submitted intact in block E1. F. ?Received in formalin labelled with proper patient identification (initials L, M) and hyperplastic distal rectal polyp is a light flores biopsy measuring 0.3 x 0.3 x 0.2 cm. Submitted intact in block F1. PALMA Meneses (ASCP) 09/30/2018 9:09 AM End of Report [facility] 09/29/2018 8:38 EST 09/29/2018 8:38 EST Chino Avila MD PATHOLOGY ORDERABLES [facility] [address] [place] [address] documented in this encounter Visit Diagnoses Not on filedocumented in this encounter Care Teams Face Hardener Relationship Specialty Start Date End Date Cherry Carrillo MD PCP - General 10/01/14 10/03/23 documented as of this encounter
--- OUTSIDE RECORDS SUMMARY | 2024-05-06 15:22 | XMS_ITS | Clinical Summary ---
Author Organization [facility] Address [address] [place] [address] Care Team Providers Care Construction Safety Manager Name Role Phone Bryce Blankenship MD Primary Care Provider [phone] Social History Tobacco Use Types Packs/Day Years Used Date Smoking Tobacco: Never Assessed Interpersonal Safety Answer Date Record ed Physically Hurt Never 03/06/2020 Verbally Threaten Not on file 03/06/2020 Sex and Gender Information Value Date Recorded Sex Assigned at Not on file Gender Identity Not on file Sexual Orientation Not on file Plan of Treatment Health Maintenance Due Date Last Done Comments Hepatitis C Screen 1955 RSV Immunization ( o r 60+ Years) (1 - 1-dose 60+ series) 2015 Fall Risk Screening 2020 COVID-19 Vaccine ( season) 2023 Care Teams Construction Safety Manager Relationship Specialty Start Date End Date Bryce Blankenship MD [address] [place] [address] PCP - General Internal Medicine - Primary Care 10/04/23
--- OUTSIDE RECORDS SUMMARY | 2024-05-06 15:22 | XMS_ITS | Encounter Summary ---
Author Organization [facility] Address [address] [place] [address] Care Team Providers Care Manager Engine Name Role Phone Unknown, Provider Primary Care Provider Encounter Details Date Type Department Care Team (Latest Contact Info) Description 09/28/2014 15:07 EST - 09/28/2014 23:59 EST Hospital Encounter [address] [address] Unknown, Provider, Discharge Disposition: Home or Self Care Social History Tobacco Use Types Packs/Day Years Used Date Smoking Tobacco: Never Assessed Sex and Gender Information Value Date Recorded Sex Assigned at Not on file Gender Identity Not on file Sexual Orientation Not on file documented as of this encounter Discharge Disposition Disposition Code Departure Means Destination Home or Self [facility] documented in this encounter Plan of Treatment Not on file documented as of this encounter Visit Diagnoses Not on filedocumented in this encounter Care Teams Manager Engine Relationship Specialty Start Date End Date Unknown, Provider, PCP - General 09/28/14 09/30/14 documented as of this encounter
--- OUTSIDE RECORDS SUMMARY | 2024-05-06 15:22 | XMS_ITS | Encounter Summary ---
Author Organization [facility] Address [address] [place] [address] Care Team Providers Care Skip Pit Worker Name Role Phone Cherry Carrillo MD Primary Care Provider [phone] Encounter Details Date Type Department Care Team (Latest Contact Info) Description 09/29/2018 10:01 EST - 09/29/2018 23:59 EST Hospital Encounter [address] [address] Unknown, Provider, Discharge Disposition: Home or Self Care Social History Tobacco Use Types Packs/Day Years Used Date Smoking Tobacco: Never Assessed Sex and Gender Information Value Date Recorded Sex Assigned at Not on file Gender Identity Not on file Sexual Orientation Not on file documented as of this encounter Discharge Disposition Disposition Code Departure Means Destination Home or Self Nursing Home documented in this encounter Plan of Treatment Not on file documented as of this encounter Visit Diagnoses Not on filedocumented in this encounter Care Teams Skip Pit Worker Relationship Specialty Start Date End Date Cherry Carrillo MD PCP - General 10/01/14 10/03/23 documented as of this encounter
[2024-05-06 20:43] LABS: ALT 28 U/L (16-63); AST 34 U/L (15-37); Albumin 4.2 g/dL (3.4-5.0); Alkaline Phosphatase 63 U/L (46-116); Anion Gap 8.7 mmol/L (3-11); BUN 15 mg/dL (7-18); Bilirubin, Total 0.79 mg/dL (0.2-1.0); CO2 26.3 mmol/L (21.0-32.0); CREATININE 0.9 mg/dL (0.70-1.30); Calcium 9.4 mg/dL (8.5-10.1); Calculated LDL 125 mg/dL (<100); Chloride 102 mmol/L (98-107); Cholesterol 227 mg/dL (<200); Estimated GFR 93.03 (mL/min/1.73m2); Glucose 110 mg/dL (74-106); HDL Cholesterol 95 mg/dL (40-60); Potassium 4.3 mmol/L (3.5-5.1); Sodium 137 mmol/L (136-145); Total Protein 7.7 g/dL (6.4-8.2); Triglyceride 39 mg/dL (<150)
== END 2024-05-06 15:20 | disposition home or self-care (01) ==
LOC: NCHCN 15:19
PROVIDERS: PCP Physician Assistant; Visit Provider Nurse Practitioner Family
DX: I10 Essential (primary) hypertension (principal)
CPT/HCPCS: 80053; 80061

== ENCOUNTER 2024-09-28 08:49 | Outpatient (CLI) | payer MEDICARE, SELFPAY ==
[2024-09-28 09:04] VITALS: BP 133/95; PULSE 61; RESP 16; TEMP 36.9; O2SAT 98
--- NOTE | 2024-09-28 09:09 | PDOC.PAIN ---
Date of service: 09/28/24 Time of Service: 09:41 Pain Managment Procedure Note Procedure Note Procedure Note: Lumbar Interlaminar Epidural Steroid Injection ? Location: L3-4 ? Pre-procedure Diagnosis: M54.16- Radiculopathy, LUMBAR region ? Post-procedure Diagnosis:? The same as above ? Sedation:? ? None ? Medication: Depo-Medrol 80 mg, Omnipaque 1 mL ? Estimated blood loss:? less than 2 cc ? Surgeon:? 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 Patient had previous discectomy in the by Dr. Posadas which appears to be at the L4?5 level. Has had previous epidural steroid injections with good relief. Last one was 11/24 at L4-5. ? Procedure Detail:? The procedure and potential risks were explained to the patient and informed written consent was obtained. The patient was escorted to the procedure room and placed in the prone position. Pillows were utilized for proper positioning and comfort. Time out was performed in the procedure room with nursing staff confirming the patient's identity, procedure to be performed, allergies, and any blood thinning or anti-platelet medications.? The patient's neck and upper back was prepped with ChloraPrep and draped in a sterile fashion. Sterile technique was maintained throughout the procedure.? Sterile gloves were used, a face mask was worn, and new single dose vials of all medications were used with the top being swabbed with alcohol and given time to dry prior to withdrawal of medication. Lidocane 1% was used to anesthetize the skin.Using a 25-gauge 1.5 inch needle, 1% lidocaine was instilled into the superficial soft tissue overlying the targeted area to provide local anesthesia. With fluoroscopic guidance, a 17 -gauge Tuohy needle was advanced toward the interlaminar space of L3-4. The needle was then advance through the ligamentum flavum and into the posterior epidural space using the loss of resistance technique. Correct needle placement was confirmed through review of the AP and contralateral oblique fluoroscopic views. A 19-gauge arrow catheter was threaded cephalad and to the Left Following negative aspiration, one cc of Omnipaque 240 contrast was injected which confirmed good flow throughout the epidural space and no evidence of vascular flow or flow into adjacent compartments. Next, following negative aspiration, 1 cc's of normal saline and 80mg of Depo-Medrol was injected. The needle was gently removed. The patient tolerated the procedure well and was transported to the recovery area for observation and discharge instructions. Permanent images saved and recorded. PAIN PRE-PROCEDURE 10/12 POST-PROCEDURE 09/14 Plan:? Follow up prn. COMMENT: repeat prn
[2024-09-28 09:22] VITALS: PULSE 67; O2SAT 97
[2024-09-28 09:30] VITALS: PULSE 79; O2SAT 98
[2024-09-28] MEDS: methylPREDNISolone ACETATE 40 MG/ML VIAL IJ (09:41)
[2024-09-28] MEDS: Omnipaque 240 MG/ML 50 ML BTL IJ (09:41)
[2024-09-28] MEDS: Epidural Tray 1 EACH MC (09:41)
--- NOTE | 2024-09-28 18:00 | DI.RAD_ITS ---
Exam(s) XR PAIN CLINIC LUMBAR SP 2V EXAM: XR PAIN CLINIC LUMBAR SP 2V CLINICAL HISTORY: Dx: Lumbar Radiculopathy. TECHNIQUE: Fluoroscopy was provided for the referring physician for guidance with performing pain cl inic injection procedure. COMPARISON: No exams were available for comparison FINDINGS: Please see procedure note for details. Fluoro time: 28.8 seconds RADIATION DOSE DELIVERED: Ka,r=6.9 mGy
== END 2024-09-28 08:50 | disposition home or self-care (01) ==
LOC: PC 08:50
PROVIDERS: PCP Nurse Practitioner Family; Visit Provider Anesthesiology Pain Medicine
DX: M54.50 Low back pain, unspecified (principal); M54.16 Radiculopathy, lumbar region
CPT/HCPCS: 00123; 62323; 72100; J1010; Q9967

== ENCOUNTER 2025-05-10 14:53 | Outpatient (REF) | payer MEDICARE, SELFPAY ==
[2025-05-10 20:11] LABS: ALT 33 U/L (16-63); AST 34 U/L (15-37); Albumin 4.4 g/dL (3.4-5.0); Alkaline Phosphatase 64 U/L (46-116); Anion Gap 8.4 mmol/L (3-11); BUN 16 mg/dL (7-18); Bilirubin, Total 0.6 mg/dL (0.2-1.0); CO2 28.6 mmol/L (21.0-32.0); Calcium 8.7 mg/dL (8.5-10.1); Calculated LDL 129 mg/dL (<100); Chloride 102 mmol/L (98-107); Cholesterol 229 mg/dL (<200); Estimated GFR 91.88 (mL/min/1.73m2); Glucose 120 mg/dL (74-106); HDL Cholesterol 94 mg/dL (>or=40); Potassium 4.3 mmol/L (3.5-5.1); Sodium 139 mmol/L (136-145); Total Protein 7.7 g/dL (6.4-8.2); Triglyceride 32 mg/dL (<150)
== END 2025-05-10 14:54 | disposition home or self-care (01) ==
LOC: NCHCN 14:53
PROVIDERS: PCP Nurse Practitioner Family; Visit Provider Nurse Practitioner Family
DX: E78.5 Hyperlipidemia, unspecified (principal)
CPT/HCPCS: 80053; 80061